=== PATIENT | female | born 1945 | race Caucasian/White ===

== ENCOUNTER 2019-11-05 22:06 | Inpatient (IN) | payer BC, MEDICARE ==
--- NOTE | 2019-11-05 22:58 | PDOC.HHP ---
Hospitalist HPI - History of Present Illness SOB History of Present Illness: 74F with no significant PMH presents for SOB for last 2 weeks which is worsening , last 5 days developed bilateral lower extremity swelling, no chest pain, went to [facility] ED and workup there revealed LBBB, CXR mild pleural effusion, TnI 0.1, repeat pending, got ASA, lasix, lovenox. EKG reviewed, 88 bpm NSR, LBBB , no old one for comparison. Sgarbossa 0, highly unlikely that LBBB represents STEMI especially with clinical picture more like CHF than STEMI. sound physicians consulted for new onset CHF w/ exacerbation. Of note had very good response to lasix so far, symptoms improved. She reports significant edema (3-4 + on exam) which is a few weeks old. ED Course: VITAL SIGNS Cynthia Nov 06, 2019 00:01 LEONARDO Hodge Julia BP: 134/68 Pulse: 80 Resp: 20 Temp: 97.9 (Oral) Pain: 0 O2 sat: 98 on (2L Oxygen) Time: 11/06/2019 00:01. Hospitalist ROS - Review of Systems Constitutional: reports: weakness. denies: fever, chills, sweats, malaise, other Eyes: denies: pain, vision change, conjunctivae inflammation, eyelid inflammation, redness, other ENT: denies: ear pain, ear discharge, nose pain, nose discharge, nose congestion , mouth pain, mouth swelling, throat pain, throat swelling, other Respiratory: reports: shortness of breath, SOB with excertion. denies: cough, dry, hemoptysis, pleuritic pain, sputum, wheezing, other Cardiovascular: reports: edema, light headedness. denies: chest pain, palpitations, orthopnea, paroxysmal noc. dyspnea, other Gastrointestinal: denies: nausea, vomiting, abdominal pain, diarrhea, constipation, melena, hematochezia, other Genitourinary: denies: dysuria, frequency, incontinence, hematuria, retention, other Musculoskeletal: denies: neck pain, shoulder pain, arm pain, back pain, hand pain, leg pain, foot pain, other Skin: denies: rash, lesions, noris, bruising, other Neurological: denies: weakness, numbness, incoordination, change in speech, confusion, seizures, other All other systems reviewed; all pertinent +/- noted in HPI/Subj Hospitalist History - Past Medical History Other Medical History: no significant PMH - Past Surgical History Other Surgical History: knee replacement - Family History Family History: reports: no pertinent history - Social History Smoking Status: Never smoker Alcohol: reports: None Drugs: reports: none - Exam General Appearance: NAD, awake alert Eye: PERRL, anicteric sclera ENT: normocephalic atraumatic, no oropharyngeal lesions, moist mucosa Neck: supple, symmetric, no JVD, no thyromegaly, no lymphadenopathy, no carotid bruit Heart: RRR, no murmur, no gallops, no rubs, normal peripheral pulses Heart - other findings: systolic ejection murmur Respiratory: CTAB, no wheezes, no rales, no ronchi, normal chest expansion, no tachypnea, normal percussion Gastrointestinal: soft, non-tender, non-distended, normal bowel sounds, no palpable masses, no hepatomegaly, no splenomegaly, no bruit Extremities - other findings: 3+ bilateral lower extremity pitting edema Skin: no lesions, no rashes Neurological: cranial nerve grossly intact, normal sensation to touch, no weakness, no focal deficits, no new deficit Musculoskeletal: normal tone, normal strength, no muscle wasting Psychiatric: normal affect, normal behavior, A&O x 3 Hospitalist Results - Labs Result Diagrams: 11/06/19 02:48 11/06/19 02:48 - EKG Interpretation EKG: reviewed see HPI LBBB with 0 of sgarbossa criteria Hospitalist H&P A/P - Plan Plan: 74F with no significant PMH presents for SOB for last 2 weeks, found to have edema, elevated troponin, murmur, given asa and lovenox, symptoms improved with lasix. # elevaed troponin # acute CHF - EF unknown # murmur - admit to telemetry - trend troponin - continue ASA, lovenox, statin - consult cardiology - echo ordered - murmur on exam - continue IV lasix - will order stress test
[2019-11-06 00:05] LABS: CKMB 2.9 ng/mL (0-6.6)
[2019-11-06] MEDS ORDERED: Ondansetron ODT 4 MG TAB SL PRN (00:58)
[2019-11-06] MEDS ORDERED: Ondansetron PF 4 MG/2 ML Vial IVP PRN ×2 (00:58→01:35)
[2019-11-06] MEDS ORDERED: cloNIDine 0.1 MG TAB PO PRN (01:35)
[2019-11-06] MEDS ORDERED: Morphine 2 MG/ML SYRINGE SLOW IVP PRN (01:35)
[2019-11-06] MEDS ORDERED: hydrALAZINE 20 MG/ML VIAL SLOW IVP PRN (01:35)
[2019-11-06] MEDS ORDERED: Promethazine HCl 12.5 MG in Sodium Chloride 0.9% 50 ML IVPB PRN (01:35)
[2019-11-06] MEDS ORDERED: Bisacodyl 10 MG SUPP PR PRN (01:36)
[2019-11-06] MEDS ORDERED: Bisacodyl 5 MG TAB PO PRN (01:36)
[2019-11-06 03:10] LABS: #Eosinphils 0.1 thou/uL (0.0-0.7); #Lymphocytes 0.7 thou/uL (1.20-3.40); #Monocytes 0.7 thou/uL (0.11-0.59); #Neutrophils 4.4 thou/uL (1.40-6.50); %Basophils 0.5 % (0.0-1.0); %Eosinophils 2.3 % (0.0-10.0); %Lymphocytes 11.5 % (21.0-51.0); %Monocytes 11.9 % (0.0-10.0); %Neutrophils 73.8 % (42.0-75.0); Hemoglobin 12.5 g/dL (12.0-16.0); Mean Corpuscular HGB CONC 31.8 g/dL (32.0-36.0); Mean Corpuscular Volume 97.5 fL (78.0-98.0); Mean Platelet Volume 8.2 fL (7.4-10.4); Platelet Count 182 thou/uL (130-400); RBC Distribution Width 13.3 % (11.5-14.5); Red Blood Cell (RBC) Count 4.05 mill/uL (4.20-5.40); White Blood Cell (WBC) Count 5.9 thou/uL (4.8-10.8)
[2019-11-06 03:22] LABS: Troponin I 0.118 ng/mL (< 0.028)
[2019-11-06 03:33] LABS: Anion Gap 10 mmol/L (10-20); BUN (Urea Nitrogen) 18 mg/dL (9.8-20.1); Calc. Creatinine Clearance 0 mL/min (70-130); Calcium 8.8 mg/dL (7.8-10.44); Carbon Dioxide 33 mmol/L (23-31); Chloride 104 mmol/L (98-107); Estimated GFR-MDRD 71; Glucose 131 mg/dL (83-110); Magnesium 1.9 mg/dL (1.6-2.6); Potassium 3.9 mmol/L (3.5-5.1); Sodium 143 mmol/L (136-145)
[2019-11-06] MEDS ORDERED: Furosemide 40 MG/4 ML VIAL ONE (06:22)
[2019-11-06] MEDS: Furosemide 40 MG/4 ML VIAL SLOW IVP SCH ×2 (06:38→16:58)
[2019-11-06] MEDS: buPROPion HCl 100 MG TAB PO SCH ×2 (08:53→20:27)
[2019-11-06] MEDS: Aspirin 81 mg Enteric Coated Tablet PO SCH (08:53)
[2019-11-06] MEDS: Polyethylene Glycol 3350 17 GM Packet PO SCH (08:54)
[2019-11-06] MEDS: Enoxaparin Sodium 120 MG/0.8 ML SYRINGE SC SCH ×2 (08:58→20:27)
[2019-11-06] MEDS ORDERED: Enoxaparin Sodium 40 MG/0.4 ML SYRINGE SC SCH (09:00)
[2019-11-06 09:52] LABS: Troponin I 0.107 ng/mL (< 0.028)
[2019-11-06] MEDS ORDERED: Regadenoson 0.4 MG/5 ML SYRINGE ONE (14:01)
--- NOTE | 2019-11-06 16:01 | NM ---
EXAM: NM Cardiac Stress W EF WF PROVIDED CLINICAL HISTORY: No onset CHF. COMPARISON: None FINDINGS: Stress only myocardial perfusion images are obtained after the administration of Lexiscan IV. Diminis hed uptake of radiotracer is seen in the distal anterolateral left ventricular wall and at the apex on the attenuation corrected images, but perfusion in the distal anterolateral wall has more normal a ppearing uptake on the nonattenuation corrected images. Resting acquisition was not performed for further evaluation. This is probably related to artifact but a small area of mild ischemia cannot be entirely excluded. There is mild left ventricular dilatation. Gated images demonstrate generalized hypokinesis. There does appear to be normal wall thickening. The calculated left ventricular ejection fraction is decreased at 33%.. IMPRESSION: 1. There is diminished uptake of radiotracer in the distal anterolateral left ventricular wall and at the apex on attenuation corrected stress images which has more normal appearing uptake on the nonattenuation corrected images. This area is probably related to artifact. Small area of mild ischem ia cannot be entirely excluded. 2. Decreased LV function with generalized hypokinesis and decreased LVEF of 33%.
--- NOTE | 2019-11-06 17:11 | CON ---
DATE OF CONSULTATION: 11/06/2019 REASON FOR CONSULTATION: Heart failure. HISTORY OF PRESENT ILLNESS: Ms. Bran is a very pleasant 74-year-old white female, who comes to the hospital for worsening shortness of breath. She, for the last 2 weeks, has developed worsening lower extremity edema and shortness of breath. She went to the ER and was found to have a new onset of left bundle-branch block, pleural effusions on chest x-ray, and was admitted for further evaluation and care. She has been diuresed. She feels a lot better, but still quite short of breath and edema has improved, but still there. Denies any chest pain, tightness, or pressure. PAST MEDICAL HISTORY: None. PAST SURGICAL HISTORY: 1. She had a heart catheterization [place] [address] Mccurdy that showed no flow-limiting disease. 2. Knee replacement. FAMILY HISTORY: Noncontributory. SOCIAL HISTORY: No alcohol, tobacco, or drugs. REVIEW OF SYSTEMS: A 12-point review of systems was done and was all negative unless stated in the history of present illness. OUTPATIENT MEDICATIONS: Multivitamin daily. ALLERGIES: NO KNOWN DRUG ALLERGIES. PHYSICAL EXAMINATION: VITAL SIGNS: Temperature 98.2, pulse 86, respiratory rate 16, saturations 95% on 3 L, blood pressure 142/67. GENERAL: Awake, alert, oriented x3, in no distress. HEENT: Normocephalic and atraumatic. NECK: Supple. LUNGS: No breath sounds at the right base. Crackles in the left base. CARDIOVASCULAR: S1 and S2. No S3 or S4. No murmurs. There is a grade 2/6 systolic murmur at the right upper sternal border. ABDOMEN: Soft. Positive bowel sounds. EXTREMITIES: 2+ edema. SKIN: Warm and dry. LABORATORY DATA: Laboratory work was reviewed. Sodium 143, potassium 3.9, normal BUN and creatinine. Troponin was 0.11, 0.11, and 0.10 with normal CK-MB. EKG was reviewed. Left bundle-branch block. Echocardiogram was reviewed, shows an EF of 20% to 25% with grade 2 diastolic dysfunction. Inferior wall is hypokinetic and inferoseptal wall is hypokinetic and anteroseptal wall is hypokinetic. ASSESSMENT: 1. New onset systolic heart failure. 2. Acute on chronic systolic heart failure. 3. New onset left bundle-branch block. PLAN: 1. Continue IV diuresis with Lasix. She is already improving significantly. 2. We will start low-dose beta-shreyas today and hopefully low-dose ALEXI inhibitor tomorrow. 3. Once she is more euvolemic and unable to lay flat, we will plan on doing a heart catheterization. We spoke at length with risks and benefits of the procedure. Risks included, but not limited to stroke, [place], , bleeding, need for blood transfusion, limb loss, organ loss. She understands and verbalized understanding of this and agrees to proceed. Thank you for letting us to participate in the care of your patient. We will continue to follow. Job ID: [id number]
--- NOTE | 2019-11-06 18:47 | PDOC.HOSPP ---
- Subjective Encounter Date: 11/06/19 Encounter Time: 08:40 Subjective: Pt seen for followup re: CHF exacerbation. Feels slightly better. - Objective Vital Signs & Weight: Vital Signs (12 hours) Temp Pulse Resp BP Pulse Ox 11/06/19 16:00 95 11/06/19 15:13 98.2 F 86 16 142/67 H 95 11/06/19 08:24 88 18 96 Weight Weight 237 lb 1 oz Result Diagrams: 11/06/19 02:48 11/06/19 02:48 Additional Labs: Labs and MARs reviewed by me EKG Reviewed by me: Yes (Tele: NSR) Hospitalist ROS - Review of Systems Constitutional: denies: fever, chills, sweats, weakness, malaise Respiratory: reports: SOB with excertion. denies: cough, shortness of breath, pleuritic pain, wheezing Cardiovascular: reports: orthopnea. denies: chest pain, palpitations, paroxysmal noc. dyspnea, edema, light headedness Gastrointestinal: denies: nausea, vomiting, abdominal pain, diarrhea, constipation, melena, hematochezia Genitourinary: denies: dysuria, frequency, incontinence, hematuria, retention - Medication Medications: Active Medications Generic Name Dose Route Start Last Admin Trade Name Freq PRN Reason Stop Dose Admin Albuterol/Ipratropium 3 ml 11/06/19 07:00 11/06/19 17:39 Duoneb NEB Not Given [id number] [facility] Aspirin 81 mg 11/06/19 09:00 11/06/19 08:53 Ecotrin PO Not Given DAILY [facility] Bupropion HCl 100 mg 11/06/19 09:00 11/06/19 08:53 Wellbutrin PO Not Given BID [facility] Enoxaparin Sodium 115 mg 11/06/19 09:00 11/06/19 08:58 Lovenox SC 115 mg 0900,2100 CH[facility]IS Administration Furosemide 40 mg 11/06/19 06:00 11/06/19 16:58 Lasix SLOW IVP 40 mg 0600,1400 CHRIS Administration Pantoprazole Sodium 40 mg 11/06/19 09:00 11/06/19 08:54 Protonix PO Not Given DAILY [facility] Polyethylene Glycol 17 gm 11/06/19 09:00 11/06/19 08:54 Miralax PO Not Given DAILY [facility]IS - Exam General - other findings: Obese Eye: anicteric sclera ENT: moist mucosa Neck: supple, symmetric, no thyromegaly, no lymphadenopathy, JVD Heart: RRR, no gallops, no rubs, normal peripheral pulses Respiratory: no wheezes, normal chest expansion, no tachypnea, rales Gastrointestinal: soft, non-tender, non-distended, normal bowel sounds Extremities: 2+ LE edema Musculoskeletal: no muscle wasting Psychiatric: normal affect, normal behavior, A&O x 3 Hosp A/P (1) Acute combined systolic and diastolic CHF, NYHA class 3 Code(s): I50.41 - ACUTE COMBINED SYSTOLIC AND DIASTOLIC (CONGESTIVE) HRT FAIL Status: Acute (2) NSTEMI (non-ST elevated myocardial infarction) Code(s): I21.4 - NON-ST ELEVATION (NSTEMI) MYOCARDIAL INFARCTION Status: Acute (3) Abnormal stress test Status: Acute (4) Alkalosis Code(s): E87.3 - ALKALOSIS Status: Acute - Plan Continue furosemide. For cath when orthopnea improves. Alkalosis mild, monitor lytes.
[2019-11-06] MEDS: Atorvastatin Calcium 40 MG TAB PO SCH (20:27)
[2019-11-07 04:53] LABS: #Eosinphils 0.2 thou/uL (0.0-0.7); #Lymphocytes 0.8 thou/uL (1.20-3.40); #Monocytes 0.6 thou/uL (0.11-0.59); #Neutrophils 3.9 thou/uL (1.40-6.50); %Basophils 0.7 % (0.0-1.0); %Eosinophils 3.2 % (0.0-10.0); %Lymphocytes 13.7 % (21.0-51.0); %Neutrophils 71.5 % (42.0-75.0); Hemoglobin 11.9 g/dL (12.0-16.0); Mean Corpuscular HGB CONC 30.3 g/dL (32.0-36.0); Mean Corpuscular Hemoglobin 29.8 pg (27.0-31.0); Mean Corpuscular Volume 98.2 fL (78.0-98.0); Mean Platelet Volume 7.9 fL (7.4-10.4); Platelet Count 182 thou/uL (130-400); RBC Distribution Width 13.2 % (11.5-14.5); Red Blood Cell (RBC) Count 3.99 mill/uL (4.20-5.40); White Blood Cell (WBC) Count 5.5 thou/uL (4.8-10.8)
[2019-11-07 05:07] LABS: Anion Gap 11 mmol/L (10-20); BUN (Urea Nitrogen) 16 mg/dL (9.8-20.1); Calc. Creatinine Clearance 87 mL/min (70-130); Calcium 8.7 mg/dL (7.8-10.44); Carbon Dioxide 37 mmol/L (23-31); Chloride 100 mmol/L (98-107); Estimated GFR-MDRD 59; Glucose 99 mg/dL (83-110); Potassium 3.8 mmol/L (3.5-5.1); Sodium 144 mmol/L (136-145)
[2019-11-07] MEDS: Furosemide 40 MG/4 ML VIAL SLOW IVP SCH ×2 (05:29→14:25)
[2019-11-07] MEDS: Aspirin 81 mg Enteric Coated Tablet PO SCH (08:30)
[2019-11-07] MEDS: buPROPion HCl 100 MG TAB PO SCH ×2 (08:30→20:20)
[2019-11-07] MEDS: Polyethylene Glycol 3350 17 GM Packet PO SCH (08:30)
[2019-11-07] MEDS: Enoxaparin Sodium 120 MG/0.8 ML SYRINGE SC SCH ×2 (08:30→20:21)
--- NOTE | 2019-11-07 14:21 | PDOC.HOSPP ---
- Subjective Encounter Date: 11/07/19 Encounter Time: 08:20 Subjective: Pt seen for followup re: CHF exacerbation. Feels better. No chest pain. - Objective Vital Signs & Weight: Vital Signs (12 hours) Temp Pulse Resp BP Pulse Ox 11/07/19 11:39 83 115/65 11/07/19 10:14 82 19 11/07/19 07:59 97 11/07/19 07:42 97.9 F 78 20 129/71 97 11/07/19 04:35 96.9 F L 85 20 134/80 93 L Weight Weight 235 lb I&O: 11/06/19 11/07/19 11/08/19 06:59 06:59 06:59 Intake Total 484 Output Total 1225 600 Balance -1225 -116 Result Diagrams: 11/07/19 04:29 11/07/19 04:29 Additional Labs: Labs and MARs reviewed by me EKG Reviewed by me: Yes (Tele; NSR) Hospitalist ROS - Review of Systems Constitutional: denies: fever, chills, sweats, weakness, malaise Respiratory: reports: cough, dry, SOB with excertion. denies: shortness of breath, pleuritic pain, wheezing Cardiovascular: reports: orthopnea, edema. denies: chest pain, palpitations, paroxysmal noc. dyspnea, light headedness Gastrointestinal: denies: nausea, vomiting, abdominal pain, diarrhea, constipation, melena, hematochezia Genitourinary: denies: dysuria, frequency, incontinence, hematuria, retention Skin: denies: rash, lesions, noris, bruising - Medication Medications: Active Medications Generic Name Dose Route Start Last Admin Trade Name Freq PRN Reason Stop Dose Admin Albuterol/Ipratropium 3 ml 11/06/19 07:00 11/07/19 10:14 Duoneb NEB 3 ml [id number] CHRIS Administration Aspirin 81 mg 11/06/19 09:00 11/07/19 08:30 Ecotrin PO 81 mg DAILY [facility]IS Administration Atorvastatin Calcium 40 mg 11/06/19 21:00 11/06/19 20:27 Lipitor PO 40 mg HS CHRIS Administration Bupropion HCl 100 mg 11/06/19 09:00 11/07/19 08:30 Wellbutrin PO 100 mg BID CHRIS Administration Enoxaparin Sodium 115 mg 11/06/19 09:00 11/07/19 08:30 Lovenox SC 115 mg 0900,2100 CHRIS Administration Furosemide 40 mg 11/06/19 06:00 11/07/19 05:29 Lasix SLOW IVP 40 mg 0600,1400 CHRIS Administration Pantoprazole Sodium 40 mg 11/06/19 09:00 11/07/19 08:30 Protonix PO 40 mg DAILY [facility]IS Administration Polyethylene Glycol 17 gm 11/06/19 09:00 11/07/19 08:30 Miralax PO Not Given DAILY [facility] - Exam General - other findings: Obesity Eye: anicteric sclera ENT: moist mucosa Neck: supple, symmetric, no thyromegaly, JVD Heart: RRR, no gallops, no rubs, normal peripheral pulses Respiratory: rales Gastrointestinal: soft, non-tender, non-distended, normal bowel sounds Extremities: 2+ LE edema Psychiatric: normal affect, normal behavior, A&O x 3 Hosp A/P (1) Acute combined systolic and diastolic CHF, NYHA class 3 Code(s): I50.41 - ACUTE COMBINED SYSTOLIC AND DIASTOLIC (CONGESTIVE) HRT FAIL Status: Acute (2) NSTEMI (non-ST elevated myocardial infarction) Code(s): I21.4 - NON-ST ELEVATION (NSTEMI) MYOCARDIAL INFARCTION Status: Acute (3) Abnormal stress test Status: Acute (4) Alkalosis Code(s): E87.3 - ALKALOSIS Status: Acute - Plan plan discussed w/ family Pt clinically improving. Continue furosemide. One time dose of Diamox for alkalosis. For cath on Sunday.
[2019-11-07] MEDS ORDERED: AcetaZOLAMIDE 250 MG TAB PO SCH (14:30)
--- NOTE | 2019-11-07 18:54 | PDOC.CPN ---
- Subjective Date: 11/07/19 Time: 18:52 Interval history: She is doing better. No chest pain. SOB is improving. Edema improving. - Review of Systems General: denies: fever/chills, weight/appetite/sleep changes, night sweats, fatigue Respiratory: denies: cough, congestion, shortness of breath, exercise intolerance Cardiovascular: reports: edema. denies: chest pain, palpitation, paroxysmal nocturnal dyspnea, orthopnea Gastrointestinal: denies: nausea, vomiting, diarrhea, constipation, abd pain, GI bleeding Musculoskeletal: denies: pain, tenderness, stiffness, swelling, arthritis/ arthralgias Neurological: denies: numbness, syncope, seizure, weakness - Objective Allergies/Adverse Reactions: Allergies Allergy/AdvReac Type Severity Reaction Status Date / Time No Known Allergies Allergy Verified 11/06/19 16:47 Visit Medications: Current Medications Acetaminophen (Tylenol) 650 mg PO Q4H PRN PRN Reason: Headache/Fever/Mild Pain (1-3) Hydrocodone Bitart/Acetaminophen ([place] 5/325) 1 tab PO Q4H PRN PRN Reason: Moderate Pain (4-6) Albuterol/Ipratropium (Duoneb) 3 ml NEB [id number] [facility] Last Admin: 11/07/19 15:31 Dose: 3 ml Albuterol/Ipratropium (Duoneb) 3 ml NEB [id number] PRN PRN Reason: SOB &/or Wheezing Aspirin (Ecotrin) 81 mg PO DAILY [facility] Last Admin: 11/07/19 08:30 Dose: 81 mg Atorvastatin Calcium (Lipitor) 40 mg PO HS [facility] Last Admin: 11/06/19 20:27 Dose: 40 mg Bisacodyl (Dulcolax) 10 mg PO DAILYPRN PRN PRN Reason: Constipation Bisacodyl (Dulcolax) 10 mg [place] DAILYPRN PRN PRN Reason: Constipation Bupropion HCl (Wellbutrin) 100 mg PO BID [facility] Last Admin: 11/07/19 08:30 Dose: 100 mg Clonidine (Catapres) 0.1 mg PO BID PRN PRN Reason: SBP > 160 use second Enoxaparin Sodium (Lovenox) 115 mg SC 0900,2100 [facility] Last Admin: 11/07/19 08:30 Dose: 115 mg Furosemide (Lasix) 40 mg SLOW IVP 0600,1400 [facility] Last Admin: 11/07/19 14:25 Dose: 40 mg Hydralazine HCl (Apresoline) 10 mg SLOW IVP Q6H PRN PRN Reason: SBP GREATER THAN 160 Promethazine HCl 12.5 mg/ (Sodium Chloride) 50.5 mls @ 202 mls/hr IVPB Q6H PRN PRN Reason: Nausea/vomiting use second Morphine Sulfate (Morphine) 2 mg SLOW IVP Q4H PRN PRN Reason: Breakthrough Pain Ondansetron HCl (Zofran) 4 mg IVP Q6H PRN PRN Reason: Nausea/Vomiting use 1st Pantoprazole Sodium (Protonix) 40 mg PO DAILY [facility] Last Admin: 11/07/19 08:30 Dose: 40 mg Polyethylene Glycol (Miralax) 17 gm PO DAILY [facility] Last Admin: 11/07/19 08:30 Dose: Not Given Vital Signs & Weight: Vital Signs Temp Pulse Resp BP Pulse Ox 11/07/19 15:40 97.9 F 71 16 115/65 99 11/07/19 15:31 83 16 11/07/19 10:14 82 19 11/07/19 07:59 97 11/07/19 07:42 97.9 F 78 20 129/71 97 Weight 235 lb - Physical Exam General: alert & oriented x3 HEENT: mucus membranes moist Neck: supple neck Cardiac: regular rate and rhythm Lungs: clear to auscultation Neuro: grossly intact Abdomen: active bowel sounds Extremities: 2+ LE edema Skin: clear Musculoskeletal: no pain - Labs Result Diagrams: 11/07/19 04:29 11/07/19 04:29 Troponin/CKMB CK-MB (CK-2) 2.9 ng/mL (0-6.6) 11/05/19 23:00 Troponin I 0.107 ng/mL (< 0.028) H 11/06/19 09:23 - Telemetry Sinus rhythms and dysrhythmias: sinus rhythm - Assessment/Plan Assessment/Plan: 1. New onset CM EF at 20-25% 2. Acute on chronic systolic heart failure. 3. New onset LBBB. PLAN: - Continue to diurese over the weekend. - Plan to risk stratify on Sunday with [facility].
[2019-11-07] MEDS ORDERED: Communication Order-Pharmacy FS SCH (19:00)
[2019-11-07] MEDS: Atorvastatin Calcium 40 MG TAB PO SCH (20:20)
[2019-11-08 04:26] LABS: #Lymphocytes 0.5 thou/uL (1.20-3.40); #Monocytes 0.9 thou/uL (0.11-0.59); #Neutrophils 6.9 thou/uL (1.40-6.50); %Eosinophils 0.6 % (0.0-10.0); %Lymphocytes 5.6 % (21.0-51.0); %Monocytes 11.2 % (0.0-10.0); %Neutrophils 82.7 % (42.0-75.0); Hemoglobin 12.6 g/dL (12.0-16.0); Mean Corpuscular HGB CONC 31.6 g/dL (32.0-36.0); Mean Corpuscular Hemoglobin 30.5 pg (27.0-31.0); Mean Corpuscular Volume 96.5 fL (78.0-98.0); Mean Platelet Volume 8.4 fL (7.4-10.4); Platelet Count 157 thou/uL (130-400); RBC Distribution Width 13.2 % (11.5-14.5); Red Blood Cell (RBC) Count 4.13 mill/uL (4.20-5.40); White Blood Cell (WBC) Count 8.4 thou/uL (4.8-10.8)
[2019-11-08 04:38] LABS: Anion Gap 11 mmol/L (10-20); BUN (Urea Nitrogen) 17 mg/dL (9.8-20.1); Calc. Creatinine Clearance 69 mL/min (70-130); Calcium 8.4 mg/dL (7.8-10.44); Carbon Dioxide 31 mmol/L (23-31); Chloride 97 mmol/L (98-107); Estimated GFR-MDRD 45; Glucose 132 mg/dL (83-110); Potassium 3.4 mmol/L (3.5-5.1); Sodium 136 mmol/L (136-145)
[2019-11-08] MEDS: Furosemide 40 MG/4 ML VIAL SLOW IVP SCH ×2 (05:35→15:16)
[2019-11-08] MEDS: Sodium Chloride 0.9% 10 ML ONE (05:35)
[2019-11-08] MEDS ORDERED: Sodium Chloride 0.9% 10 ML ONE ×2 (08:26→13:39)
[2019-11-08] MEDS: Aspirin 81 mg Enteric Coated Tablet PO SCH (09:00)
[2019-11-08] MEDS: Enoxaparin Sodium 120 MG/0.8 ML SYRINGE SC SCH ×2 (09:00→20:23)
[2019-11-08] MEDS: buPROPion HCl 100 MG TAB PO SCH ×2 (09:00→20:23)
[2019-11-08] MEDS ORDERED: Potassium Chloride 20 MEQ TAB PO SCH (09:00)
[2019-11-08] MEDS: Polyethylene Glycol 3350 17 GM Packet PO SCH (09:05)
--- NOTE | 2019-11-08 16:35 | PDOC.HOSPP ---
- Subjective Encounter Date: 11/08/19 Encounter Time: 07:40 Subjective: Pt seen for followup re: CHF exacerbation. c/o SOBOE and orthopnea. - Objective Vital Signs & Weight: Vital Signs (12 hours) Temp Pulse Resp BP Pulse Ox 11/08/19 15:24 98.0 F 98 16 127/63 94 L 11/08/19 14:41 90 14 11/08/19 12:00 98.4 F 93 18 134/60 94 L 11/08/19 10:37 14 11/08/19 08:00 96.7 F L 83 18 114/69 93 L 11/08/19 07:26 90 14 Weight Weight 231 lb 8 oz I&O: 11/07/19 11/08/19 11/09/19 06:59 06:59 06:59 Intake Total 1618 Output Total 3726 7790 Balance -3340 -0495 Result Diagrams: 11/08/19 04:08 11/08/19 04:08 Additional Labs: Labs and MARs reviewed by me EKG Reviewed by me: Yes (Tele; NSR) Hospitalist ROS - Review of Systems Respiratory: reports: SOB with excertion Cardiovascular: reports: orthopnea. denies: chest pain, palpitations, paroxysmal noc. dyspnea, edema, light headedness Gastrointestinal: denies: nausea, vomiting, abdominal pain, diarrhea, constipation, melena, hematochezia - Medication Medications: Active Medications Generic Name Dose Route Start Last Admin Trade Name Freq PRN Reason Stop Dose Admin Albuterol/Ipratropium 3 ml 11/06/19 07:00 11/08/19 14:41 Duoneb NEB 3 ml [id number] [facility]IS Administration Aspirin 81 mg 11/06/19 09:00 11/08/19 09:00 Ecotrin PO 81 mg DAILY [facility]IS Administration Atorvastatin Calcium 40 mg 11/06/19 21:00 11/07/19 20:20 Lipitor PO 40 mg HS [facility]RIS Administration Bupropion HCl 100 mg 11/06/19 09:00 11/08/19 09:00 Wellbutrin PO 100 mg BID [facility]RIS Administration Enoxaparin Sodium 115 mg 11/06/19 09:00 11/08/19 09:00 Lovenox SC 11/09/19 23:59 115 mg 0900,2100 CHRIS Administration Furosemide 40 mg 11/06/19 06:00 11/08/19 15:16 Lasix SLOW IVP 40 mg 0600,1400 CHRIS Administration Pantoprazole Sodium 40 mg 11/06/19 09:00 11/08/19 09:00 Protonix PO 40 mg DAILY [facility]IS Administration Polyethylene Glycol 17 gm 11/06/19 09:00 11/08/19 09:05 Miralax PO Not Given DAILY [facility]IS - Exam General - other findings: Obese Eye: anicteric sclera ENT: moist mucosa Neck: supple, no JVD Heart: RRR Respiratory - other findings: Garrett crackles Gastrointestinal: soft, non-tender Extremities: 2+ LE edema Psychiatric: normal affect, normal behavior Hosp A/P (1) Acute combined systolic and diastolic CHF, NYHA class 3 Code(s): I50.41 - ACUTE COMBINED SYSTOLIC AND DIASTOLIC (CONGESTIVE) HRT FAIL Status: Acute (2) NSTEMI (non-ST elevated myocardial infarction) Code(s): I21.4 - NON-ST ELEVATION (NSTEMI) MYOCARDIAL INFARCTION Status: Acute (3) Abnormal stress test Status: Acute (4) Alkalosis Code(s): E87.3 - ALKALOSIS Status: Resolved - Plan out of bed/ambulate Pt clinically improving, in negative fluid balance. Continue furosemide. Metabolic alkalosis resolved. For cath on Sunday.
[2019-11-08] MEDS: Atorvastatin Calcium 40 MG TAB PO SCH (20:23)
[2019-11-09] MEDS: HYDROcodone/Acetaminophen 5/325 mg Tablet PO PRN ×2 (01:58→16:09)
[2019-11-09 04:42] LABS: #Lymphocytes 0.6 thou/uL (1.20-3.40); #Neutrophils 5.8 thou/uL (1.40-6.50); %Eosinophils 0.3 % (0.0-10.0); %Lymphocytes 7.7 % (21.0-51.0); %Monocytes 13.8 % (0.0-10.0); %Neutrophils 78.3 % (42.0-75.0); Hemoglobin 11.5 g/dL (12.0-16.0); Mean Corpuscular HGB CONC 31.9 g/dL (32.0-36.0); Mean Corpuscular Hemoglobin 30.7 pg (27.0-31.0); Mean Corpuscular Volume 96.3 fL (78.0-98.0); Mean Platelet Volume 8.1 fL (7.4-10.4); Platelet Count 152 thou/uL (130-400); RBC Distribution Width 13.1 % (11.5-14.5); Red Blood Cell (RBC) Count 3.74 mill/uL (4.20-5.40); White Blood Cell (WBC) Count 7.4 thou/uL (4.8-10.8)
[2019-11-09 05:03] LABS: Anion Gap 10 mmol/L (10-20); BUN (Urea Nitrogen) 16 mg/dL (9.8-20.1); Calc. Creatinine Clearance 89 mL/min (70-130); Calcium 8.4 mg/dL (7.8-10.44); Carbon Dioxide 31 mmol/L (23-31); Chloride 97 mmol/L (98-107); Estimated GFR-MDRD 62; Glucose 112 mg/dL (83-110); Potassium 3.3 mmol/L (3.5-5.1); Sodium 135 mmol/L (136-145)
[2019-11-09] MEDS: Furosemide 40 MG/4 ML VIAL SLOW IVP SCH ×2 (05:40→14:01)
[2019-11-09] MEDS ORDERED: Potassium Chloride 20 MEQ TAB PO SCH (08:30)
[2019-11-09] MEDS: buPROPion HCl 100 MG TAB PO SCH ×2 (09:18→21:10)
[2019-11-09] MEDS: Enoxaparin Sodium 120 MG/0.8 ML SYRINGE SC SCH ×2 (09:18→21:10)
[2019-11-09] MEDS: Aspirin 81 mg Enteric Coated Tablet PO SCH (09:18)
[2019-11-09] MEDS: Polyethylene Glycol 3350 17 GM Packet PO SCH (09:20)
--- NOTE | 2019-11-09 13:54 | PDOC.HOSPP ---
- Subjective Encounter Date: 11/09/19 Encounter Time: 09:00 Subjective: Pt seen for followup re: acute combined CHF exacerbation. Feels slightly better today. - Objective Vital Signs & Weight: Vital Signs (12 hours) Temp Pulse Resp BP Pulse Ox 11/09/19 11:28 97.3 F L 83 18 122/64 99 11/09/19 11:06 94 16 11/09/19 09:16 97.8 F 81 20 128/57 L 93 L 11/09/19 08:25 85 16 11/09/19 08:00 95 11/09/19 03:30 151/76 H 11/09/19 03:25 98.1 F 85 18 161/112 H 97 Weight Weight 233 lb 9.6 oz I&O: 11/08/19 11/09/19 11/10/19 06:59 06:59 06:59 Intake Total 1618 1090 Output Total 4642 8280 Balance -3053 -2074 Result Diagrams: 11/09/19 04:32 11/09/19 04:32 Additional Labs: Labs and MARs reviewed by me EKG Reviewed by me: Yes (Tele: NSR) Hospitalist ROS - Review of Systems Respiratory: reports: SOB with excertion Cardiovascular: reports: orthopnea, edema. denies: chest pain, palpitations, paroxysmal noc. dyspnea, light headedness Gastrointestinal: denies: nausea, vomiting, abdominal pain, diarrhea, constipation, melena, hematochezia - Medication Medications: Active Medications Generic Name Dose Route Start Last Admin Trade Name Freq PRN Reason Stop Dose Admin Hydrocodone Bitart/Acetaminophen 1 tab 11/06/19 01:36 11/09/19 01:58 [place] 5/325 PO 1 tab Q4H PRN Administration Moderate Pain (4-6) Albuterol/Ipratropium 3 ml 11/06/19 07:00 11/09/19 11:06 Duoneb NEB 3 ml [id number] CHRIS Administration Aspirin 81 mg 11/06/19 09:00 11/09/19 09:18 Ecotrin PO 81 mg DAILY [facility]IS Administration Atorvastatin Calcium 40 mg 11/06/19 21:00 11/08/19 20:23 Lipitor PO 40 mg HS [facility]IS Administration Bupropion HCl 100 mg 11/06/19 09:00 11/09/19 09:18 Wellbutrin PO 100 mg BID [facility]RIS Administration Enoxaparin Sodium 115 mg 11/06/19 09:00 11/09/19 09:18 Lovenox SC 11/09/19 23:59 115 mg 0900,2100 [facility]IS Administration Furosemide 40 mg 11/06/19 06:00 11/09/19 05:40 Lasix SLOW IVP 40 mg 0600,1400 [facility]IS Administration Pantoprazole Sodium 40 mg 11/06/19 09:00 11/09/19 09:19 Protonix PO 40 mg DAILY [facility]IS Administration Polyethylene Glycol 17 gm 11/06/19 09:00 11/09/19 09:20 Miralax PO Not Given DAILY [facility] - Exam General - other findings: Obese Eye: anicteric sclera ENT: moist mucosa Neck: JVD Heart: RRR Respiratory - other findings: Garrett crackles Gastrointestinal: soft, non-tender Musculoskeletal: no muscle wasting Psychiatric: normal affect, normal behavior Hosp A/P (1) Acute combined systolic and diastolic CHF, NYHA class 3 Code(s): I50.41 - ACUTE COMBINED SYSTOLIC AND DIASTOLIC (CONGESTIVE) HRT FAIL Status: Acute (2) NSTEMI (non-ST elevated myocardial infarction) Code(s): I21.4 - NON-ST ELEVATION (NSTEMI) MYOCARDIAL INFARCTION Status: Acute (3) Abnormal stress test Status: Acute (4) Alkalosis Code(s): E87.3 - ALKALOSIS Status: Resolved - Plan Pt clinically improving. Continue furosemide. For cath tomorrow. replace potassium.
[2019-11-09] MEDS: Sodium Chloride 0.9% 10 ML ONE (14:06)
[2019-11-09] MEDS: Atorvastatin Calcium 40 MG TAB PO SCH (21:10)
[2019-11-10] MEDS ORDERED: Sodium Chloride 0.9% 250 ML IV SCH ×2 (00:01→13:00)
[2019-11-10] MEDS: buPROPion HCl 100 MG TAB PO SCH ×2 (05:30→22:49)
[2019-11-10] MEDS: Aspirin 81 mg Enteric Coated Tablet PO SCH (05:30)
[2019-11-10] MEDS: Furosemide 40 MG/4 ML VIAL SLOW IVP SCH (05:30)
[2019-11-10] MEDS: Polyethylene Glycol 3350 17 GM Packet PO SCH (10:19)
[2019-11-10] MEDS ORDERED: Lidocaine 1% (PF) 30 ML VIAL ONE (11:15)
[2019-11-10] MEDS ORDERED: Heparin (Artline) 1,000 ML ONE (11:15)
[2019-11-10] MEDS ORDERED: Heparin 10,000 UNITS/1 ML VIAL ONE (11:41)
[2019-11-10] MEDS ORDERED: Verapamil 5 MG/2 ML VIAL ONE (11:41)
[2019-11-10] MEDS ORDERED: Nitroglycerin 100MG/250ML BOT 250 ML ONE (11:41)
[2019-11-10] MEDS ORDERED: Fentanyl 100 MCG/2 ML VIAL ONE (11:45)
[2019-11-10] MEDS ORDERED: Midazolam HCl 2 mg/2 ml Vial ONE (11:45)
[2019-11-10] MEDS ORDERED: Iopamidol 370 76% 50 ML VIAL FS ONE (12:01)
[2019-11-10] MEDS ORDERED: Iopamidol 370 76% 100 ML VIAL ONE (12:01)
[2019-11-10] MEDS ORDERED: Nitroglycerin 0.4 MG TAB (25 Tab Bottle) SL PRN (12:49)
[2019-11-10] MEDS ORDERED: TICAGRELOR 90 MG TABLET ONE (12:49)
[2019-11-10] MEDS ORDERED: Potassium Chloride 20 MEQ TAB PO SCH (13:00)
--- NOTE | 2019-11-10 14:20 | PDOC.HOSPP ---
- Subjective Encounter Date: 11/10/19 Encounter Time: 07:40 Subjective: Pt seen for followup re:CHF exacerbation. Feels better. - Objective Vital Signs & Weight: Vital Signs (12 hours) Temp Pulse Resp BP Pulse Ox 11/10/19 08:17 81 16 11/10/19 07:58 97.9 F 81 16 122/66 97 11/10/19 03:27 98.1 F 68 17 132/74 98 Weight Weight 232 lb 8 oz I&O: 11/09/19 11/10/19 11/11/19 06:59 06:59 06:59 Intake Total 1090 Output Total 2950 500 Balance -1860 -500 Result Diagrams: 11/09/19 04:32 11/09/19 04:32 Additional Labs: Labs and MARs reviewed by me EKG Reviewed by me: Yes (Tele; NSR) Hospitalist ROS - Review of Systems Cardiovascular: denies: chest pain, palpitations, orthopnea, paroxysmal noc. dyspnea, edema, light headedness Gastrointestinal: denies: nausea, vomiting, abdominal pain, diarrhea, constipation, melena, hematochezia - Medication Medications: Active Medications Generic Name Dose Route Start Last Admin Trade Name Freq PRN Reason Stop Dose Admin Hydrocodone Bitart/Acetaminophen 1 tab 11/06/19 01:36 11/09/19 16:09 [place] 5/325 PO 1 tab Q4H PRN Administration Moderate Pain (4-6) Albuterol/Ipratropium 3 ml 11/06/19 07:00 11/10/19 10:55 Duoneb NEB Not Given [id number] CHRIS Atorvastatin Calcium 40 mg 11/06/19 21:00 11/09/19 21:10 Lipitor PO 40 mg HS CHRIS Administration Bupropion HCl 100 mg 11/06/19 09:00 11/10/19 05:30 Wellbutrin PO 100 mg BID CHRIS Administration Pantoprazole Sodium 40 mg 11/06/19 09:00 11/10/19 05:30 Protonix PO 40 mg DAILY CHRIS Administration Polyethylene Glycol 17 gm 11/06/19 09:00 11/10/19 10:19 Miralax PO Not Given DAILY CHRIS - Exam General - other findings: Obesity Eye: anicteric sclera ENT: moist mucosa Neck: supple, symmetric Heart: RRR Respiratory: CTAB Gastrointestinal: soft, non-tender Extremities: 2+ LE edema Psychiatric: normal affect, normal behavior Hosp A/P (1) Acute combined systolic and diastolic CHF, NYHA class 3 Code(s): I50.41 - ACUTE COMBINED SYSTOLIC AND DIASTOLIC (CONGESTIVE) HRT FAIL Status: Acute (2) NSTEMI (non-ST elevated myocardial infarction) Code(s): I21.4 - NON-ST ELEVATION (NSTEMI) MYOCARDIAL INFARCTION Status: Acute (3) Abnormal stress test Status: Acute (4) Alkalosis Code(s): E87.3 - ALKALOSIS Status: Resolved - Plan plan discussed w/ family, out of bed/ambulate Pt clinically improving. Continue furosemide. For cath today.
[2019-11-10] MEDS: Furosemide 40 MG TAB PO SCH (15:18)
[2019-11-10] MEDS: TICAGRELOR 90 MG TABLET PO SCH (22:48)
[2019-11-10] MEDS: Atorvastatin Calcium 40 MG TAB PO SCH (22:48)
[2019-11-10] MEDS: HYDROcodone/Acetaminophen 5/325 mg Tablet PO PRN (22:48)
[2019-11-11 04:24] LABS: #Eosinphils 0.2 thou/uL (0.0-0.7); #Lymphocytes 0.6 thou/uL (1.20-3.40); #Monocytes 0.6 thou/uL (0.11-0.59); %Eosinophils 2.8 % (0.0-10.0); %Lymphocytes 9.2 % (21.0-51.0); %Monocytes 8.9 % (0.0-10.0); %Neutrophils 79.1 % (42.0-75.0); Hemoglobin 10.9 g/dL (12.0-16.0); Mean Corpuscular HGB CONC 31.5 g/dL (32.0-36.0); Mean Corpuscular Hemoglobin 30.2 pg (27.0-31.0); Mean Corpuscular Volume 95.9 fL (78.0-98.0); Platelet Count 185 thou/uL (130-400); RBC Distribution Width 12.7 % (11.5-14.5); Red Blood Cell (RBC) Count 3.61 mill/uL (4.20-5.40); White Blood Cell (WBC) Count 6.3 thou/uL (4.8-10.8)
[2019-11-11 04:47] LABS: ALT (SGPT) 20 U/L (8-55); AST (SGOT) 24 U/L (5-34); Albumin 2.8 g/dL (3.4-4.8); Alkaline Phosphatase 66 U/L (40-110); Anion Gap 10 mmol/L (10-20); BUN (Urea Nitrogen) 17 mg/dL (9.8-20.1); Bilirubin, Total 0.5 mg/dL (0.2-1.2); Calc. Creatinine Clearance 85 mL/min (70-130); Calcium 8.5 mg/dL (7.8-10.44); Carbon Dioxide 35 mmol/L (23-31); Chloride 96 mmol/L (98-107); Estimated GFR-MDRD 58; Globulin 2.9 g/dL (2.4-3.5); Glucose 107 mg/dL (83-110); Potassium 3.8 mmol/L (3.5-5.1); Protein, Total 5.7 g/dL (6.0-8.3); Sodium 137 mmol/L (136-145)
[2019-11-11] MEDS ORDERED: Lisinopril 2.5 MG TAB PO SCH (09:00)
[2019-11-11] MEDS: buPROPion HCl 100 MG TAB PO SCH ×2 (09:42→20:38)
[2019-11-11] MEDS: Aspirin Chewable 81 MG TAB PO SCH (09:42)
[2019-11-11] MEDS: TICAGRELOR 90 MG TABLET PO SCH ×2 (09:45→20:38)
[2019-11-11] MEDS: Furosemide 40 MG TAB PO SCH ×2 (09:49→14:57)
[2019-11-11] MEDS: Polyethylene Glycol 3350 17 GM Packet PO SCH (10:10)
--- NOTE | 2019-11-11 17:46 | PDOC.HOSPP ---
- Subjective Encounter Date: 11/11/19 Encounter Time: 08:20 Subjective: Pt seen for followup re: CHF exacerbation. Feels better. - Objective Vital Signs & Weight: Vital Signs (12 hours) Temp Pulse Pulse Pulse Resp BP BP 11/11/19 15:50 98.6 F 90 18 11/11/19 14:45 84 16 11/11/19 12:03 98.1 F 79 18 11/11/19 10:49 85 16 11/11/19 09:54 84 93 124/71 11/11/19 09:42 81 126/68 11/11/19 08:17 98.3 F 89 18 11/11/19 06:51 82 16 BP BP Pulse Ox 11/11/19 15:50 126/60 97 11/11/19 14:45 94 L 11/11/19 12:03 133/67 96 11/11/19 10:49 95 11/11/19 09:54 158/70 H 11/11/19 09:42 11/11/19 08:17 132/69 95 11/11/19 06:51 94 L Weight Weight 237 lb I&O: 11/10/19 11/11/19 11/12/19 06:59 06:59 06:59 Intake Total 840 Output Total 500 2250 Balance -500 -1410 Result Diagrams: 11/11/19 04:11 11/11/19 04:11 Additional Labs: Labs and MARs reviewed by me EKG Reviewed by me: Yes (Tele: NSR) Hospitalist ROS - Review of Systems Respiratory: denies: cough, shortness of breath, hemoptysis, SOB with excertion , pleuritic pain, sputum, wheezing Cardiovascular: denies: chest pain, palpitations, orthopnea, paroxysmal noc. dyspnea, edema, light headedness Musculoskeletal: reports: other (R arm swelling) - Medication Medications: Active Medications Generic Name Dose Route Start Last Admin Trade Name Freq PRN Reason Stop Dose Admin Hydrocodone Bitart/Acetaminophen 1 tab 11/06/19 01:36 11/10/19 22:48 [place] 5/325 PO 1 tab Q4H PRN Administration Moderate Pain (4-6) Albuterol/Ipratropium 3 ml 11/06/19 07:00 11/11/19 14:45 Duoneb NEB 3 ml [id number] CHRIS Administration Aspirin 81 mg 11/11/19 09:00 11/11/19 09:42 Aspirin Chewable PO 81 mg DAILY CHRIS Administration Atorvastatin Calcium 40 mg 11/06/19 21:00 11/10/19 22:48 Lipitor PO 40 mg HS CHRIS Administration Bupropion HCl 100 mg 11/06/19 09:00 11/11/19 09:42 Wellbutrin PO 100 mg BID CHRIS Administration Furosemide 40 mg 11/10/19 14:00 11/11/19 14:57 Lasix PO 40 mg 0900,1400 CHRIS Administration Lisinopril 1.25 mg 11/11/19 09:00 11/11/19 09:42 Zestril PO 1.25 mg DAILY CHRIS Administration Metoprolol Succinate 12.5 mg 11/11/19 09:00 11/11/19 09:44 Toprol Xl PO 12.5 mg DAILY CHRIS Administration Morphine Sulfate 2 mg 11/06/19 01:35 11/10/19 23:36 Morphine SLOW IVP 2 mg Q4H PRN Administration Breakthrough Pain Pantoprazole Sodium 40 mg 11/06/19 09:00 11/11/19 09:44 Protonix PO 40 mg DAILY CHRIS Administration Polyethylene Glycol 17 gm 11/06/19 09:00 11/11/19 10:10 Miralax PO Not Given DAILY [facility] Ticagrelor 90 mg 11/10/19 21:00 11/11/19 09:45 Brilinta PO 90 mg BID CHRIS Administration - Exam General - other findings: Obese Eye: anicteric sclera ENT: no oropharyngeal lesions Neck: supple Heart: RRR Respiratory: CTAB Gastrointestinal: soft, non-tender Extremities: 2+ LE edema Extremities - other findings: R arm hematoma Psychiatric: normal affect, normal behavior Hosp A/P (1) Acute combined systolic and diastolic CHF, NYHA class 3 Code(s): I50.41 - ACUTE COMBINED SYSTOLIC AND DIASTOLIC (CONGESTIVE) HRT FAIL Status: Acute (2) NSTEMI (non-ST elevated myocardial infarction) Code(s): I21.4 - NON-ST ELEVATION (NSTEMI) MYOCARDIAL INFARCTION Status: Acute (3) Alkalosis Code(s): E87.3 - ALKALOSIS Status: Resolved - Plan Compression dressing for hematoma. Continue furosemide. s/p PCI with MARK.
[2019-11-11] MEDS: Acetaminophen 325 MG TAB PO PRN ×2 (18:21→20:39)
--- NOTE | 2019-11-11 19:38 | PDOC.CPN ---
- Subjective Date: 11/11/19 Time: 19:37 Interval history: Doing better, she developed a hematoma on her ri\ght forearm. Pressure dressing applied and better now. No chest pain, tightness, pressure. SOB improving. - Review of Systems General: denies: fever/chills, weight/appetite/sleep changes, night sweats, fatigue Respiratory: denies: cough, congestion, shortness of breath, exercise intolerance Cardiovascular: denies: chest pain, palpitation, edema, paroxysmal nocturnal dyspnea, orthopnea Gastrointestinal: denies: nausea, vomiting, diarrhea, constipation, abd pain, GI bleeding Musculoskeletal: denies: pain, tenderness, stiffness, swelling, arthritis/ arthralgias Neurological: denies: numbness, syncope, seizure, weakness - Objective Allergies/Adverse Reactions: Allergies Allergy/AdvReac Type Severity Reaction Status Date / Time No Known Allergies Allergy Verified 11/06/19 16:47 Visit Medications: Current Medications Acetaminophen (Tylenol) 650 mg PO Q4H PRN PRN Reason: Headache/Fever/Mild Pain (1-3) Last Admin: 11/11/19 18:21 Dose: 650 mg Hydrocodone Bitart/Acetaminophen ([place] 5/325) 1 tab PO Q4H PRN PRN Reason: Moderate Pain (4-6) Last Admin: 11/10/19 22:48 Dose: 1 tab Albuterol/Ipratropium (Duoneb) 3 ml NEB [id number] SCH Last Admin: 11/11/19 14:45 Dose: 3 ml Albuterol/Ipratropium (Duoneb) 3 ml NEB [id number] PRN PRN Reason: SOB &/or Wheezing Aspirin (Aspirin Chewable) 81 mg PO DAILY [facility] Last Admin: 11/11/19 09:42 Dose: 81 mg Atorvastatin Calcium (Lipitor) 40 mg PO HS [facility] Last Admin: 11/10/19 22:48 Dose: 40 mg Bisacodyl (Dulcolax) 10 mg PO DAILYPRN PRN PRN Reason: Constipation Bisacodyl (Dulcolax) 10 mg [place] DAILYPRN PRN PRN Reason: Constipation Bupropion HCl (Wellbutrin) 100 mg PO BID [facility] Last Admin: 11/11/19 09:42 Dose: 100 mg Clonidine (Catapres) 0.1 mg PO BID PRN PRN Reason: SBP > 160 use second Furosemide (Lasix) 40 mg PO 0900,1400 [facility] Last Admin: 11/11/19 14:57 Dose: 40 mg Hydralazine HCl (Apresoline) 10 mg SLOW IVP Q6H PRN PRN Reason: SBP GREATER THAN 160 Promethazine HCl 12.5 mg/ (Sodium Chloride) 50.5 mls @ 202 mls/hr IVPB Q6H PRN PRN Reason: Nausea/vomiting use second Lisinopril (Zestril) 1.25 mg PO DAILY [facility] Last Admin: 11/11/19 09:42 Dose: 1.25 mg Metoprolol Succinate (Toprol Xl) 12.5 mg PO DAILY [facility] Last Admin: 11/11/19 09:44 Dose: 12.5 mg Morphine Sulfate (Morphine) 2 mg SLOW IVP Q4H PRN PRN Reason: Breakthrough Pain Last Admin: 11/10/19 23:36 Dose: 2 mg Nitroglycerin (Nitrostat) 0.4 mg SL Q5MIN PRN PRN Reason: Chest Pain Ondansetron HCl (Zofran) 4 mg IVP Q6H PRN PRN Reason: Nausea/Vomiting use 1st Pantoprazole Sodium (Protonix) 40 mg PO DAILY [facility] Last Admin: 11/11/19 09:44 Dose: 40 mg Polyethylene Glycol (Miralax) 17 gm PO DAILY [facility] Last Admin: 11/11/19 10:10 Dose: Not Given Ticagrelor (Brilinta) 90 mg PO BID [facility] Last Admin: 11/11/19 09:45 Dose: 90 mg Vital Signs & Weight: Vital Signs Temp Pulse Pulse Pulse Resp BP BP 11/11/19 15:50 98.6 F 90 18 11/11/19 14:45 84 16 11/11/19 12:03 98.1 F 79 18 11/11/19 10:49 85 16 11/11/19 09:54 84 93 124/71 11/11/19 09:42 81 126/68 11/11/19 08:17 98.3 F 89 18 BP BP Pulse Ox 11/11/19 15:50 126/60 97 11/11/19 14:45 94 L 11/11/19 12:03 133/67 96 11/11/19 10:49 95 11/11/19 09:54 158/70 H 11/11/19 09:42 11/11/19 08:17 132/69 95 Weight 237 lb - Physical Exam General: alert & oriented x3 HEENT: mucus membranes moist Neck: supple neck Cardiac: regular rate and rhythm Lungs: clear to auscultation Neuro: grossly intact Abdomen: active bowel sounds Extremities: 1+ LE edema Skin: clear Musculoskeletal: no pain - Labs Result Diagrams: 11/11/19 04:11 11/11/19 04:11 Troponin/CKMB CK-MB (CK-2) 2.9 ng/mL (0-6.6) 11/05/19 23:00 Troponin I 0.107 ng/mL (< 0.028) H 11/06/19 09:23 - Telemetry Sinus rhythms and dysrhythmias: sinus rhythm - Assessment/Plan Assessment/Plan: 1. New onset CM EF at 20-25% 2. Acute on chronic systolic heart failure. 3. New onset LBBB. 4. CAD s/p PCI to LAD< complex intervention jailing a moderate sized diagonal. 5. Ischemic dilated CM. PLAN: - ZARIA with Brilinta and aspirin - Continue BB and ACEI, will increase lisinopril to 2.5 mg daily. - Lifevest before discharge. - Likely will need inpatient rehab.
[2019-11-11] MEDS: Atorvastatin Calcium 40 MG TAB PO SCH (20:38)
[2019-11-12] MEDS: Aspirin Chewable 81 MG TAB PO SCH (09:07)
[2019-11-12] MEDS: Lisinopril 2.5 MG TAB PO SCH (09:08)
[2019-11-12] MEDS: TICAGRELOR 90 MG TABLET PO SCH ×2 (09:08→20:52)
[2019-11-12] MEDS: Furosemide 40 MG TAB PO SCH ×2 (09:08→15:06)
[2019-11-12] MEDS: buPROPion HCl 100 MG TAB PO SCH ×2 (09:08→20:52)
[2019-11-12] MEDS: Polyethylene Glycol 3350 17 GM Packet PO SCH (09:08)
[2019-11-12 10:11] LABS: #Eosinphils 0.3 thou/uL (0.0-0.7); #Lymphocytes 0.6 thou/uL (1.20-3.40); #Monocytes 0.9 thou/uL (0.11-0.59); #Neutrophils 5.7 thou/uL (1.40-6.50); %Basophils 0.6 % (0.0-1.0); %Eosinophils 3.6 % (0.0-10.0); %Lymphocytes 7.6 % (21.0-51.0); %Monocytes 11.9 % (0.0-10.0); %Neutrophils 76.4 % (42.0-75.0); Hemoglobin 11.6 g/dL (12.0-16.0); Mean Corpuscular HGB CONC 30.9 g/dL (32.0-36.0); Mean Corpuscular Hemoglobin 29.9 pg (27.0-31.0); Mean Corpuscular Volume 96.8 fL (78.0-98.0); Mean Platelet Volume 7.9 fL (7.4-10.4); Platelet Count 230 thou/uL (130-400); RBC Distribution Width 12.7 % (11.5-14.5); Red Blood Cell (RBC) Count 3.88 mill/uL (4.20-5.40); White Blood Cell (WBC) Count 7.4 thou/uL (4.8-10.8)
[2019-11-12 10:15] LABS: Anion Gap 10 mmol/L (10-20); BUN (Urea Nitrogen) 15 mg/dL (9.8-20.1); Calc. Creatinine Clearance 85 mL/min (70-130); Carbon Dioxide 36 mmol/L (23-31); Chloride 95 mmol/L (98-107); Estimated GFR-MDRD 57; Glucose 112 mg/dL (83-110); Potassium 3.6 mmol/L (3.5-5.1); Sodium 137 mmol/L (136-145)
--- NOTE | 2019-11-12 15:15 | PDOC.HOSPP ---
- Subjective Encounter Date: 11/12/19 Encounter Time: 09:45 Subjective: pt up in bed no complains. - Objective Vital Signs & Weight: Vital Signs (12 hours) Temp Pulse Pulse Pulse Resp BP BP 11/12/19 15:05 98.1 F 75 18 11/12/19 14:22 77 16 11/12/19 11:12 98.1 F 72 18 11/12/19 10:33 84 16 11/12/19 09:23 85 82 140/70 137/67 11/12/19 09:08 83 11/12/19 07:30 97.4 F L 83 20 11/12/19 07:04 82 16 11/12/19 03:35 97.9 F 78 18 BP Pulse Ox Pulse Ox Pulse Ox 11/12/19 15:05 119/63 96 11/12/19 14:22 95 11/12/19 11:12 118/64 95 11/12/19 10:33 94 L 11/12/19 09:23 97 97 11/12/19 09:08 11/12/19 07:30 146/86 H 97 11/12/19 07:04 95 11/12/19 03:35 122/55 L 97 Weight Weight 237 lb I&O: 11/11/19 11/12/19 11/13/19 06:59 06:59 06:59 Intake Total 840 950 Output Total 2250 4200 950 Balance -1410 -3250 -950 Result Diagrams: 11/12/19 09:30 11/12/19 09:30 Hospitalist ROS - Review of Systems Respiratory: denies: cough, dry, shortness of breath, hemoptysis, SOB with excertion, pleuritic pain, sputum, wheezing, other Cardiovascular: denies: chest pain, palpitations, orthopnea, paroxysmal noc. dyspnea, edema, light headedness, other Gastrointestinal: denies: nausea, vomiting, abdominal pain, diarrhea, constipation, melena, hematochezia, other Genitourinary: denies: dysuria, frequency, incontinence, hematuria, retention, other - Medication Medications: Active Medications Generic Name Dose Route Start Last Admin Trade Name Freq PRN Reason Stop Dose Admin Acetaminophen 650 mg 11/06/19 01:36 11/11/19 20:39 Tylenol PO 650 mg Q4H PRN Administration Headache/Fever/Mild Pain (1-3) Hydrocodone Bitart/Acetaminophen 1 tab 11/06/19 01:36 11/10/19 22:48 [place] 5/325 PO 1 tab Q4H PRN Administration Moderate Pain (4-6) Albuterol/Ipratropium 3 ml 11/06/19 07:00 11/12/19 14:22 Duoneb NEB 3 ml [id number] CHRIS Administration Aspirin 81 mg 11/11/19 09:00 11/12/19 09:07 Aspirin Chewable PO 81 mg DAILY CHRIS Administration Atorvastatin Calcium 40 mg 11/06/19 21:00 11/11/19 20:38 Lipitor PO 40 mg HS CHRIS Administration Bupropion HCl 100 mg 11/06/19 09:00 11/12/19 09:08 Wellbutrin PO 100 mg BID CHRIS Administration Furosemide 40 mg 11/10/19 14:00 11/12/19 15:06 Lasix PO 40 mg 0900,1400 CHRIS Administration Lisinopril 2.5 mg 11/12/19 09:00 11/12/19 09:08 Zestril PO 2.5 mg DAILY CHRIS Administration Metoprolol Succinate 12.5 mg 11/11/19 09:00 11/12/19 09:08 Toprol Xl PO 12.5 mg DAILY CHRIS Administration Morphine Sulfate 2 mg 11/06/19 01:35 11/10/19 23:36 Morphine SLOW IVP 2 mg Q4H PRN Administration Breakthrough Pain Pantoprazole Sodium 40 mg 11/06/19 09:00 11/12/19 09:08 Protonix PO 40 mg DAILY CHRIS Administration Polyethylene Glycol 17 gm 11/06/19 09:00 11/12/19 09:08 Miralax PO Not Given DAILY [facility]RIS Ticagrelor 90 mg 11/10/19 21:00 11/12/19 09:08 Brilinta PO 90 mg BID CHRIS Administration - Exam Neck: negative: supple, symmetric, no JVD, no thyromegaly, no lymphadenopathy, no carotid bruit, JVD Heart: negative: RRR, no murmur, no gallops, no rubs, normal peripheral pulses, irregular, diminshed peripheral pulses, murmur present, II/IV, III/IV Respiratory: negative: CTAB, no wheezes, no rales, no ronchi, normal chest expansion, no tachypnea, normal percussion, rales, rhonchi, tachypneic, wheezes Gastrointestinal: negative: soft, non-tender, non-distended, normal bowel sounds , no palpable masses, no hepatomegaly, no splenomegaly, no bruit, no guarding, no rigidity, tender to palpation, distended, diminished bowl sounds, voluntary guarding Skin - other findings: erythema noted to her lower legs Neurological: negative: cranial nerve grossly intact, normal sensation to touch , no weakness, no focal deficits, no new deficit, facial droop, hemiplegia, speech deficit, vision deficit Hosp A/P (1) Abnormal stress test Status: Acute (2) CHF, acute Code(s): I50.9 - HEART FAILURE, UNSPECIFIED Status: Acute (3) NSTEMI (non-ST elevated myocardial infarction) Code(s): I21.4 - NON-ST ELEVATION (NSTEMI) MYOCARDIAL INFARCTION Status: Acute - Plan will discontinue hogue. pt will need a life vest. will need inpatient rehab. will continue brilinta.
--- NOTE | 2019-11-12 18:07 | PDOC.CPN ---
- Subjective Date: 11/12/19 Time: 18:05 Interval history: She is doing better. Her right forearm hematoma has organized, it is still runner but smaller in size. No angina. - Review of Systems General: denies: fever/chills, weight/appetite/sleep changes, night sweats, fatigue Respiratory: denies: cough, congestion, shortness of breath, exercise intolerance Cardiovascular: denies: chest pain, palpitation, edema, paroxysmal nocturnal dyspnea, orthopnea Gastrointestinal: denies: nausea, vomiting, diarrhea, constipation, abd pain, GI bleeding Musculoskeletal: denies: pain, tenderness, stiffness, swelling, arthritis/ arthralgias Neurological: denies: numbness, syncope, seizure, weakness - Objective Allergies/Adverse Reactions: Allergies Allergy/AdvReac Type Severity Reaction Status Date / Time No Known Allergies Allergy Verified 11/06/19 16:47 Visit Medications: Current Medications Acetaminophen (Tylenol) 650 mg PO Q4H PRN PRN Reason: Headache/Fever/Mild Pain (1-3) Last Admin: 11/11/19 20:39 Dose: 650 mg Hydrocodone Bitart/Acetaminophen ([place] 5/325) 1 tab PO Q4H PRN PRN Reason: Moderate Pain (4-6) Last Admin: 11/10/19 22:48 Dose: 1 tab Albuterol/Ipratropium (Duoneb) 3 ml NEB [id number] SCH Last Admin: 11/12/19 14:22 Dose: 3 ml Albuterol/Ipratropium (Duoneb) 3 ml NEB [id number] PRN PRN Reason: SOB &/or Wheezing Aspirin (Aspirin Chewable) 81 mg PO DAILY [facility] Last Admin: 11/12/19 09:07 Dose: 81 mg Atorvastatin Calcium (Lipitor) 40 mg PO HS [facility] Last Admin: 11/11/19 20:38 Dose: 40 mg Bisacodyl (Dulcolax) 10 mg PO DAILYPRN PRN PRN Reason: Constipation Bisacodyl (Dulcolax) [address] DAILYPRN PRN PRN Reason: Constipation Bupropion HCl (Wellbutrin) 100 mg PO BID [facility] Last Admin: 11/12/19 09:08 Dose: 100 mg Clonidine (Catapres) 0.1 mg PO BID PRN PRN Reason: SBP > 160 use second Furosemide (Lasix) 40 mg PO 0900,1400 [facility] Last Admin: 11/12/19 15:06 Dose: 40 mg Hydralazine HCl (Apresoline) 10 mg SLOW IVP Q6H PRN PRN Reason: SBP GREATER THAN 160 Promethazine HCl 12.5 mg/ (Sodium Chloride) 50.5 mls @ 202 mls/hr IVPB Q6H PRN PRN Reason: Nausea/vomiting use second Lisinopril (Zestril) 2.5 mg PO DAILY [facility] Last Admin: 11/12/19 09:08 Dose: 2.5 mg Metoprolol Succinate (Toprol Xl) 12.5 mg PO DAILY [facility] Last Admin: 11/12/19 09:08 Dose: 12.5 mg Morphine Sulfate (Morphine) 2 mg SLOW IVP Q4H PRN PRN Reason: Breakthrough Pain Last Admin: 11/10/19 23:36 Dose: 2 mg Nitroglycerin (Nitrostat) 0.4 mg SL Q5MIN PRN PRN Reason: Chest Pain Ondansetron HCl (Zofran) 4 mg IVP Q6H PRN PRN Reason: Nausea/Vomiting use 1st Pantoprazole Sodium (Protonix) 40 mg PO DAILY [facility] Last Admin: 11/12/19 09:08 Dose: 40 mg Polyethylene Glycol (Miralax) 17 gm PO DAILY [facility] Last Admin: 11/12/19 09:08 Dose: Not Given Ticagrelor (Brilinta) 90 mg PO BID [facility] Last Admin: 11/12/19 09:08 Dose: 90 mg Vital Signs & Weight: Vital Signs Temp Pulse Pulse Pulse Resp BP BP 11/12/19 15:05 98.1 F 75 18 11/12/19 14:22 77 16 11/12/19 11:12 98.1 F 72 18 11/12/19 10:33 84 16 11/12/19 09:23 85 82 140/70 137/67 11/12/19 09:08 83 11/12/19 07:30 97.4 F L 83 20 11/12/19 07:04 82 16 BP Pulse Ox Pulse Ox Pulse Ox 11/12/19 15:05 119/63 96 11/12/19 14:22 95 11/12/19 11:12 118/64 95 11/12/19 10:33 94 L 11/12/19 09:23 97 97 02/05/20 09:08 11/12/19 07:30 146/86 H 97 11/12/19 07:04 95 Weight 237 lb - Physical Exam General: alert & oriented x3 HEENT: mucus membranes moist Neck: supple neck Cardiac: regular rate and rhythm Lungs: clear to auscultation Neuro: grossly intact Abdomen: active bowel sounds Extremities: 1+ LE edema Skin: clear Musculoskeletal: no pain - Labs Result Diagrams: 11/12/19 09:30 11/12/19 09:30 Troponin/CKMB CK-MB (CK-2) 2.9 ng/mL (0-6.6) 11/05/19 23:00 Troponin I 0.107 ng/mL (< 0.028) H 11/06/19 09:23 - Telemetry Sinus rhythms and dysrhythmias: sinus rhythm - Assessment/Plan Assessment/Plan: 1. New onset CM EF at 20-25% 2. Acute on chronic systolic heart failure. 3. New onset LBBB. 4. CAD s/p PCI to LAD< complex intervention jailing a moderate sized diagonal. 5. Ischemic dilated CM. PLAN: - ZARIA with Brilinta and aspirin - Continue BB and ACEI. - Lifevest before discharge. - Likely will need inpatient rehab. - Monitor hematoma.
[2019-11-12] MEDS: Atorvastatin Calcium 40 MG TAB PO SCH (20:52)
[2019-11-12] MEDS: Acetaminophen 325 MG TAB PO PRN (22:03)
[2019-11-13] MEDS: buPROPion HCl 100 MG TAB PO SCH ×2 (09:42→20:07)
[2019-11-13] MEDS: Aspirin Chewable 81 MG TAB PO SCH (09:42)
[2019-11-13] MEDS: Lisinopril 2.5 MG TAB PO SCH (09:43)
[2019-11-13] MEDS: TICAGRELOR 90 MG TABLET PO SCH ×2 (09:51→20:12)
[2019-11-13] MEDS: Furosemide 40 MG TAB PO SCH ×2 (09:51→15:35)
[2019-11-13] MEDS: Polyethylene Glycol 3350 17 GM Packet PO SCH (09:52)
[2019-11-13 13:20] VITALS: BMI 37.6
--- NOTE | 2019-11-13 17:02 | PDOC.HOSPP ---
- Subjective Encounter Date: 11/13/19 Encounter Time: 10:15 Subjective: pt up in bed no complains - Objective Vital Signs & Weight: Vital Signs (12 hours) Temp Pulse Pulse Pulse Resp BP BP 11/13/19 15:32 98.1 F 71 18 11/13/19 15:20 70 14 11/13/19 12:40 97.6 F 76 18 11/13/19 10:54 71 16 11/13/19 09:43 76 11/13/19 09:14 79 80 125/60 118/65 11/13/19 08:33 76 14 11/13/19 07:45 97.6 F 83 18 BP Pulse Ox Pulse Ox Pulse Ox Pulse Ox 11/13/19 15:32 100/52 L 99 11/13/19 15:20 99 11/13/19 12:40 104/60 98 11/13/19 10:54 96 11/13/19 09:43 11/13/19 09:14 94 L 95 91 L 11/13/19 08:33 98 11/13/19 07:45 143/79 H 95 Weight Admit Weight 237 lb 1 oz Weight 226 lb 4 oz I&O: 11/12/19 11/13/19 11/14/19 06:59 06:59 06:59 Intake Total 950 1320 Output Total 4200 3850 Balance -3250 -2530 Result Diagrams: 11/12/19 09:30 11/12/19 09:30 Hospitalist ROS - Review of Systems Cardiovascular: denies: chest pain, palpitations, orthopnea, paroxysmal noc. dyspnea, edema, light headedness, other Gastrointestinal: denies: nausea, vomiting, abdominal pain, diarrhea, constipation, melena, hematochezia, other Genitourinary: denies: dysuria, frequency, incontinence, hematuria, retention, other Musculoskeletal: denies: neck pain, shoulder pain, arm pain, back pain, hand pain, leg pain, foot pain, other - Medication Medications: Active Medications Generic Name Dose Route Start Last Admin Trade Name Freq PRN Reason Stop Dose Admin Acetaminophen 650 mg 11/06/19 01:36 11/12/19 22:03 Tylenol PO 650 mg Q4H PRN Administration Headache/Fever/Mild Pain (1-3) Hydrocodone Bitart/Acetaminophen 1 tab 11/06/19 01:36 11/10/19 22:48 [place] 5/325 PO 1 tab Q4H PRN Administration Moderate Pain (4-6) Albuterol/Ipratropium 3 ml 11/06/19 07:00 11/13/19 15:20 Duoneb NEB 3 ml [id number] CHRIS Administration Aspirin 81 mg 11/11/19 09:00 11/13/19 09:42 Aspirin Chewable PO 81 mg DAILY CHRIS Administration Atorvastatin Calcium 40 mg 11/06/19 21:00 11/12/19 20:52 Lipitor PO 40 mg HS CHRIS Administration Bupropion HCl 100 mg 11/06/19 09:00 11/13/19 09:42 Wellbutrin PO 100 mg BID CHRIS Administration Furosemide 40 mg 11/10/19 14:00 11/13/19 15:35 Lasix PO Not Given 0900,1400 [facility] Lisinopril 2.5 mg 11/12/19 09:00 11/13/19 09:43 Zestril PO 2.5 mg DAILY [facility] Administration Metoprolol Succinate 12.5 mg 11/11/19 09:00 11/13/19 09:43 Toprol Xl PO 12.5 mg DAILY [facility] Administration Morphine Sulfate 2 mg 11/06/19 01:35 11/10/19 23:36 Morphine SLOW IVP 2 mg Q4H PRN Administration Breakthrough Pain Pantoprazole Sodium 40 mg 11/06/19 09:00 11/13/19 09:43 Protonix PO 40 mg DAILY [facility] Administration Polyethylene Glycol 17 gm 11/06/19 09:00 11/13/19 09:52 Miralax PO Not Given DAILY [facility] Ticagrelor 90 mg 11/10/19 21:00 11/13/19 09:51 Brilinta PO 90 mg BID [facility] Administration - Exam Neck: negative: supple, symmetric, no JVD, no thyromegaly, no lymphadenopathy, no carotid bruit, JVD Heart: negative: RRR, no murmur, no gallops, no rubs, normal peripheral pulses, irregular, diminshed peripheral pulses, murmur present, II/IV, III/IV Respiratory: negative: CTAB, no wheezes, no rales, no ronchi, normal chest expansion, no tachypnea, normal percussion, rales, rhonchi, tachypneic, wheezes Hosp A/P (1) Abnormal stress test Status: Acute (2) CHF, acute Code(s): I50.9 - HEART FAILURE, UNSPECIFIED Status: Acute Qualifiers: Heart failure type: systolic Qualified Code(s): I50.21 - Acute systolic ( congestive) heart failure (3) NSTEMI (non-ST elevated myocardial infarction) Code(s): I21.4 - NON-ST ELEVATION (NSTEMI) MYOCARDIAL INFARCTION Status: Acute - Plan will discontinue hogue. pt will need a life vest. will need inpatient rehab. will continue brilinta. 2/ Her hematoma is stable, will monitor. pt going to inpatient rehab.
--- NOTE | 2019-11-13 17:11 | PDOC.CPN ---
- Subjective Date: 11/13/19 Time: 17:09 Interval history: She is doing well.l Her right forearm hematoma has decreased in size and is less tense. - Review of Systems General: denies: fever/chills, weight/appetite/sleep changes, night sweats, fatigue Respiratory: denies: cough, congestion, shortness of breath, exercise intolerance Cardiovascular: denies: chest pain, palpitation, edema, paroxysmal nocturnal dyspnea, orthopnea Gastrointestinal: denies: nausea, vomiting, diarrhea, constipation, abd pain, GI bleeding Musculoskeletal: denies: pain, tenderness, stiffness, swelling, arthritis/ arthralgias Neurological: denies: numbness, syncope, seizure, weakness - Objective Allergies/Adverse Reactions: Allergies Allergy/AdvReac Type Severity Reaction Status Date / Time No Known Allergies Allergy Verified 11/06/19 16:47 Visit Medications: Current Medications Acetaminophen (Tylenol) 650 mg PO Q4H PRN PRN Reason: Headache/Fever/Mild Pain (1-3) Last Admin: 11/12/19 22:03 Dose: 650 mg Hydrocodone Bitart/Acetaminophen ([place] 5/325) 1 tab PO Q4H PRN PRN Reason: Moderate Pain (4-6) Last Admin: 11/10/19 22:48 Dose: 1 tab Albuterol/Ipratropium (Duoneb) 3 ml NEB [id number] SCH Last Admin: 11/13/19 15:20 Dose: 3 ml Albuterol/Ipratropium (Duoneb) 3 ml NEB [id number] PRN PRN Reason: SOB &/or Wheezing Aspirin (Aspirin Chewable) 81 mg PO DAILY [facility] Last Admin: 11/13/19 09:42 Dose: 81 mg Atorvastatin Calcium (Lipitor) 40 mg PO HS [facility] Last Admin: 11/12/19 20:52 Dose: 40 mg Bisacodyl (Dulcolax) 10 mg PO DAILYPRN PRN PRN Reason: Constipation Bisacodyl (Dulcolax) 10 mg [place] DAILYPRN PRN PRN Reason: Constipation Bupropion HCl (Wellbutrin) 100 mg PO BID [facility] Last Admin: 11/13/19 09:42 Dose: 100 mg Clonidine (Catapres) 0.1 mg PO BID PRN PRN Reason: SBP > 160 use second Furosemide (Lasix) 40 mg PO 0900,1400 [facility] Last Admin: 11/13/19 15:35 Dose: Not Given Hydralazine HCl (Apresoline) 10 mg SLOW IVP Q6H PRN PRN Reason: SBP GREATER THAN 160 Promethazine HCl 12.5 mg/ (Sodium Chloride) 50.5 mls @ 202 mls/hr IVPB Q6H PRN PRN Reason: Nausea/vomiting use second Lisinopril (Zestril) 2.5 mg PO DAILY [facility] Last Admin: 11/13/19 09:43 Dose: 2.5 mg Metoprolol Succinate (Toprol Xl) 12.5 mg PO DAILY [facility] Last Admin: 11/13/19 09:43 Dose: 12.5 mg Morphine Sulfate (Morphine) 2 mg SLOW IVP Q4H PRN PRN Reason: Breakthrough Pain Last Admin: 11/10/19 23:36 Dose: 2 mg Nitroglycerin (Nitrostat) 0.4 mg SL Q5MIN PRN PRN Reason: Chest Pain Ondansetron HCl (Zofran) 4 mg IVP Q6H PRN PRN Reason: Nausea/Vomiting use 1st Pantoprazole Sodium (Protonix) 40 mg PO DAILY [facility] Last Admin: 11/13/19 09:43 Dose: 40 mg Polyethylene Glycol (Miralax) 17 gm PO DAILY [facility] Last Admin: 11/13/19 09:52 Dose: Not Given Ticagrelor (Brilinta) 90 mg PO BID [facility] Last Admin: 11/13/19 09:51 Dose: 90 mg Vital Signs & Weight: Vital Signs Temp Pulse Pulse Pulse Resp BP BP 11/13/19 15:32 98.1 F 71 18 11/13/19 15:20 70 14 11/13/19 12:40 97.6 F 76 18 11/13/19 10:54 71 16 11/13/19 09:43 76 11/13/19 09:14 79 80 125/60 118/65 11/13/19 08:33 76 14 11/13/19 07:45 97.6 F 83 18 BP Pulse Ox Pulse Ox Pulse Ox Pulse Ox 11/13/19 15:32 100/52 L 99 11/13/19 15:20 99 11/13/19 12:40 104/60 98 11/13/19 10:54 96 11/13/19 09:43 11/13/19 09:14 94 L 95 91 L 11/13/19 08:33 98 11/13/19 07:45 143/79 H 95 Admit Weight 237 lb 1 oz Weight 226 lb 4 oz - Physical Exam General: alert & oriented x3 HEENT: mucus membranes moist Neck: supple neck Cardiac: regular rate and rhythm Lungs: clear to auscultation Neuro: grossly intact Abdomen: active bowel sounds Extremities: no edema Skin: clear Musculoskeletal: no pain - Labs Result Diagrams: 11/12/19 09:30 11/12/19 09:30 Troponin/CKMB CK-MB (CK-2) 2.9 ng/mL (0-6.6) 11/05/19 23:00 Troponin I 0.107 ng/mL (< 0.028) H 11/06/19 09:23 - Telemetry Sinus rhythms and dysrhythmias: sinus rhythm - Assessment/Plan Assessment/Plan: 1. New onset CM EF at 20-25% 2. Acute on chronic systolic heart failure. 3. New onset LBBB. 4. CAD s/p PCI to LAD, complex intervention jailing a moderate sized diagonal. 5. Ischemic dilated CM. PLAN: - ZARIA will switch brilinta to plavix as she developed a spontaneous LEFT arm hematoma, small in size on top of the right arm hematoma. Hgb stable. - Continue BB and ACEI. - Lifevest already with her in the room. - Likely will need inpatient rehab. - Monitor hematoma.
[2019-11-13] MEDS: Atorvastatin Calcium 40 MG TAB PO SCH (20:08)
[2019-11-14] MEDS: Polyethylene Glycol 3350 17 GM Packet PO SCH (08:30)
[2019-11-14] MEDS: Lisinopril 2.5 MG TAB PO SCH (08:31)
[2019-11-14] MEDS: Aspirin Chewable 81 MG TAB PO SCH (08:31)
[2019-11-14] MEDS: Furosemide 40 MG TAB PO SCH (08:34)
[2019-11-14] MEDS: buPROPion HCl 100 MG TAB PO SCH ×2 (08:34→21:49)
[2019-11-14] MEDS: Clopidogrel Bisulfate 75 MG TAB PO SCH (08:34)
--- NOTE | 2019-11-14 15:35 | PDOC.HOSPP ---
- Subjective Encounter Date: 11/14/19 Encounter Time: 10:45 Subjective: pt up in bed no complains - Objective Vital Signs & Weight: Vital Signs (12 hours) Temp Pulse Pulse Pulse Resp BP BP 11/14/19 15:08 75 18 11/14/19 11:04 83 73 143/68 H 130/66 11/14/19 11:00 97.7 F 85 16 11/14/19 10:35 76 14 11/14/19 07:30 97.8 F 79 16 11/14/19 06:34 72 14 11/14/19 04:00 97.5 F L 77 18 BP BP Pulse Ox 11/14/19 15:08 96 11/14/19 11:04 11/14/19 11:00 130/75 96 11/14/19 10:35 98 11/14/19 07:30 125/66 95 11/14/19 06:34 98 11/14/19 04:00 130/67 97 Weight Admit Weight 237 lb 1 oz Weight 220 lb 1.6 oz I&O: 11/13/19 11/14/19 11/15/19 06:59 06:59 06:59 Intake Total 1320 1020 Output Total 3850 2009 Balance -2530 -990 Result Diagrams: 11/12/19 09:30 11/12/19 09:30 Hospitalist ROS - Review of Systems Cardiovascular: denies: chest pain, palpitations, orthopnea, paroxysmal noc. dyspnea, edema, light headedness, other Gastrointestinal: denies: nausea, vomiting, abdominal pain, diarrhea, constipation, melena, hematochezia, other Genitourinary: denies: dysuria, frequency, incontinence, hematuria, retention, other - Medication Medications: Active Medications Generic Name Dose Route Start Last Admin Trade Name Freq PRN Reason Stop Dose Admin Acetaminophen 650 mg 11/06/19 01:36 11/12/19 22:03 Tylenol PO 650 mg Q4H PRN Administration Headache/Fever/Mild Pain (1-3) Hydrocodone Bitart/Acetaminophen 1 tab 11/06/19 01:36 11/10/19 22:48 [place] 5/325 PO 1 tab Q4H PRN Administration Moderate Pain (4-6) Albuterol/Ipratropium 3 ml 11/06/19 07:00 11/14/19 15:08 Duoneb NEB 3 ml [id number] CHRIS Administration Aspirin 81 mg 11/11/19 09:00 11/14/19 08:31 Aspirin Chewable PO 81 mg DAILY CHRIS Administration Atorvastatin Calcium 40 mg 11/06/19 21:00 11/13/19 20:08 Lipitor PO 40 mg HS CHRIS Administration Bupropion HCl 100 mg 11/06/19 09:00 11/14/19 08:34 Wellbutrin PO 100 mg BID CHRIS Administration Clopidogrel Bisulfate 75 mg 11/14/19 09:00 11/14/19 08:34 Plavix PO 75 mg DAILY [facility]IS Administration Furosemide 40 mg 11/14/19 07:30 11/14/19 08:34 Lasix PO 40 mg DAILY-AC CHRIS Administration Lisinopril 2.5 mg 11/12/19 09:00 11/14/19 08:31 Zestril PO 2.5 mg DAILY [facility]IS Administration Metoprolol Succinate 12.5 mg 11/11/19 09:00 11/14/19 08:31 Toprol Xl PO 12.5 mg DAILY [facility]IS Administration Morphine Sulfate 2 mg 11/06/19 01:35 11/10/19 23:36 Morphine SLOW IVP 2 mg Q4H PRN Administration Breakthrough Pain Pantoprazole Sodium 40 mg 11/06/19 09:00 11/14/19 08:34 Protonix PO 40 mg DAILY [facility]RIS Administration Polyethylene Glycol 17 gm 11/06/19 09:00 11/14/19 08:30 Miralax PO Not Given DAILY [facility]IS - Exam Heart: negative: RRR, no murmur, no gallops, no rubs, normal peripheral pulses, irregular, diminshed peripheral pulses, murmur present, II/IV, III/IV Respiratory: negative: CTAB, no wheezes, no rales, no ronchi, normal chest expansion, no tachypnea, normal percussion, rales, rhonchi, tachypneic, wheezes Gastrointestinal: negative: soft, non-tender, non-distended, normal bowel sounds , no palpable masses, no hepatomegaly, no splenomegaly, no bruit, no guarding, no rigidity, tender to palpation, distended, diminished bowl sounds, voluntary guarding Extremities: negative: no cyanosis, no clubbing, no edema, 1+ LE edema, 2+ LE edema, clubbing Skin - other findings: hematoma to right arm and one to left arm. she does have a rash to legs Hosp A/P (1) Abnormal stress test Status: Acute (2) CHF, acute Code(s): I50.9 - HEART FAILURE, UNSPECIFIED Status: Acute Qualifiers: Heart failure type: systolic Qualified Code(s): I50.21 - Acute systolic ( congestive) heart failure Plan: new (3) NSTEMI (non-ST elevated myocardial infarction) Code(s): I21.4 - NON-ST ELEVATION (NSTEMI) MYOCARDIAL INFARCTION Status: Acute (4) Hematoma Code(s): T14.8XXA - OTHER INJURY OF UNSPECIFIED BODY REGION, INITIAL ENCOUNTER Status: Acute (5) LBBB (left bundle branch block) Code(s): I44.7 - LEFT BUNDLE-BRANCH BLOCK, UNSPECIFIED Status: Acute - Plan will discontinue hogue. pt will need a life vest. will need inpatient rehab. will continue brilinta. 11/13 Her hematoma is stable, will monitor. pt going to inpatient rehab. 11/14 will check labs in am. Awaiting inpatient approval. pt medically stable to be discharged. brilinta changed to plavix.
--- NOTE | 2019-11-14 16:14 | PDOC.CPN ---
- Subjective Date: 11/14/19 Time: 16:12 Interval history: Doing well. 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 No angina, Breathing at baseline. - Review of Systems General: denies: fever/chills, weight/appetite/sleep changes, night sweats, fatigue Respiratory: denies: cough, congestion, shortness of breath, exercise intolerance Cardiovascular: denies: chest pain, palpitation, edema, paroxysmal nocturnal dyspnea, orthopnea Gastrointestinal: denies: nausea, vomiting, diarrhea, constipation, abd pain, GI bleeding Musculoskeletal: denies: pain, tenderness, stiffness, swelling, arthritis/ arthralgias Neurological: denies: numbness, syncope, seizure, weakness - Objective Allergies/Adverse Reactions: Allergies Allergy/AdvReac Type Severity Reaction Status Date / Time No Known Allergies Allergy Verified 11/06/19 16:47 Visit Medications: Current Medications Acetaminophen (Tylenol) 650 mg PO Q4H PRN PRN Reason: Headache/Fever/Mild Pain (1-3) Last Admin: 11/12/19 22:03 Dose: 650 mg Hydrocodone Bitart/Acetaminophen ([place] 5/325) 1 tab PO Q4H PRN PRN Reason: Moderate Pain (4-6) Last Admin: 11/10/19 22:48 Dose: 1 tab Albuterol/Ipratropium (Duoneb) 3 ml NEB [id number] SCH Last Admin: 11/14/19 15:08 Dose: 3 ml Albuterol/Ipratropium (Duoneb) 3 ml NEB [id number] PRN PRN Reason: SOB &/or Wheezing Aspirin (Aspirin Chewable) 81 mg PO DAILY [facility] Last Admin: 11/14/19 08:31 Dose: 81 mg Atorvastatin Calcium (Lipitor) 40 mg PO HS [facility] Last Admin: 11/13/19 20:08 Dose: 40 mg Bisacodyl (Dulcolax) 10 mg PO DAILYPRN PRN PRN Reason: Constipation Bisacodyl (Dulcolax) 10 mg [place] DAILYPRN PRN PRN Reason: Constipation Bupropion HCl (Wellbutrin) 100 mg PO BID [facility] Last Admin: 11/14/19 08:34 Dose: 100 mg Clonidine (Catapres) 0.1 mg PO BID PRN PRN Reason: SBP > 160 use second Clopidogrel Bisulfate (Plavix) 75 mg PO DAILY [facility] Last Admin: 11/14/19 08:34 Dose: 75 mg Furosemide (Lasix) 40 mg PO DAILY-AC [facility] Last Admin: 11/14/19 08:34 Dose: 40 mg Hydralazine HCl (Apresoline) 10 mg SLOW IVP Q6H PRN PRN Reason: SBP GREATER THAN 160 Promethazine HCl 12.5 mg/ (Sodium Chloride) 50.5 mls @ 202 mls/hr IVPB Q6H PRN PRN Reason: Nausea/vomiting use second Lisinopril (Zestril) 2.5 mg PO DAILY [facility] Last Admin: 11/14/19 08:31 Dose: 2.5 mg Metoprolol Succinate (Toprol Xl) 12.5 mg PO DAILY [facility] Last Admin: 11/14/19 08:31 Dose: 12.5 mg Morphine Sulfate (Morphine) 2 mg SLOW IVP Q4H PRN PRN Reason: Breakthrough Pain Last Admin: 11/10/19 23:36 Dose: 2 mg Nitroglycerin (Nitrostat) 0.4 mg SL Q5MIN PRN PRN Reason: Chest Pain Ondansetron HCl (Zofran) 4 mg IVP Q6H PRN PRN Reason: Nausea/Vomiting use 1st Pantoprazole Sodium (Protonix) 40 mg PO DAILY [facility] Last Admin: 11/14/19 08:34 Dose: 40 mg Polyethylene Glycol (Miralax) 17 gm PO DAILY [facility] Last Admin: 11/14/19 08:30 Dose: Not Given Vital Signs & Weight: Vital Signs Temp Pulse Pulse Pulse Resp BP BP 11/14/19 15:10 97.8 F 75 16 11/14/19 15:08 75 18 11/14/19 11:04 83 73 143/68 H 130/66 11/14/19 11:00 97.7 F 85 16 11/14/19 10:35 76 14 11/14/19 07:30 97.8 F 79 16 11/14/19 06:34 72 14 BP BP Pulse Ox 11/14/19 15:10 110/59 L 99 11/14/19 15:08 96 11/14/19 11:04 11/14/19 11:00 130/75 96 11/14/19 10:35 98 11/14/19 07:30 125/66 95 11/14/19 06:34 98 Admit Weight 237 lb 1 oz Weight 220 lb 1.6 oz - Physical Exam General: alert & oriented x3 HEENT: mucus membranes moist Neck: supple neck Cardiac: regular rate and rhythm Lungs: clear to auscultation Neuro: grossly intact Abdomen: active bowel sounds Extremities: 1+ LE edema Skin: clear Musculoskeletal: no pain - Labs Result Diagrams: 11/12/19 09:30 11/12/19 09:30 Troponin/CKMB CK-MB (CK-2) 2.9 ng/mL (0-6.6) 11/05/19 23:00 Troponin I 0.107 ng/mL (< 0.028) H 11/06/19 09:23 - Telemetry Sinus rhythms and dysrhythmias: sinus rhythm - Assessment/Plan Assessment/Plan: 1. New onset CM EF at 20-25% 2. Acute on chronic systolic heart failure. 3. New onset LBBB. 4. CAD s/p PCI to LAD, complex intervention jailing a moderate sized diagonal. 5. Ischemic dilated CM. PLAN: - ZARIA, switched brilinta to plavix due to spontaneous LEFT arm hematoma small in size, this is on top of the larger RIGHT arm hematoma which was thought related to radial intervention. Hgb remains stable. - Continue BB and ACEI. - Lifevest in the room. - Will need inpatient rehab. - Monitor hematoma, better now.
[2019-11-14] MEDS: Atorvastatin Calcium 40 MG TAB PO SCH (21:49)
[2019-11-15 04:37] LABS: #Eosinphils 0.2 thou/uL (0.0-0.7); #Lymphocytes 0.8 thou/uL (1.20-3.40); #Monocytes 0.6 thou/uL (0.11-0.59); #Neutrophils 3.3 thou/uL (1.40-6.50); %Basophils 0.7 % (0.0-1.0); %Eosinophils 5.1 % (0.0-10.0); %Lymphocytes 16.5 % (21.0-51.0); %Monocytes 11.5 % (0.0-10.0); %Neutrophils 66.3 % (42.0-75.0); Mean Corpuscular Hemoglobin 30.8 pg (27.0-31.0); Mean Corpuscular Volume 96.4 fL (78.0-98.0); Mean Platelet Volume 7.5 fL (7.4-10.4); Platelet Count 258 thou/uL (130-400); RBC Distribution Width 12.5 % (11.5-14.5); Red Blood Cell (RBC) Count 3.56 mill/uL (4.20-5.40); White Blood Cell (WBC) Count 4.9 thou/uL (4.8-10.8)
[2019-11-15 04:57] LABS: Anion Gap 10 mmol/L (10-20); BUN (Urea Nitrogen) 16 mg/dL (9.8-20.1); Calc. Creatinine Clearance 87 mL/min (70-130); Calcium 8.8 mg/dL (7.8-10.44); Carbon Dioxide 36 mmol/L (23-31); Chloride 97 mmol/L (98-107); Estimated GFR-MDRD 63; Glucose 97 mg/dL (83-110); Potassium 3.5 mmol/L (3.5-5.1); Sodium 139 mmol/L (136-145)
[2019-11-15] MEDS: Clopidogrel Bisulfate 75 MG TAB PO SCH (08:58)
[2019-11-15] MEDS: buPROPion HCl 100 MG TAB PO SCH (08:58)
[2019-11-15] MEDS: Lisinopril 2.5 MG TAB PO SCH (08:58)
[2019-11-15] MEDS: Furosemide 40 MG TAB PO SCH (08:58)
[2019-11-15] MEDS: Aspirin Chewable 81 MG TAB PO SCH (08:58)
[2019-11-15] MEDS: Polyethylene Glycol 3350 17 GM Packet PO SCH (08:58)
--- NOTE | 2019-11-15 09:52 | PDOC.CPN ---
- Subjective Date: 11/15/19 Time: 08:10 Interval history: Ms. Bran is awake, watching TV. Slept well, no acute complaints or concerns. LUE hematoma, RUE hematoma, right radial hematoma improving. Awaiting placement at inpatient Rehab. No overnight events on telemetry. Denies anginal pain, SOB, N/V/D. - Review of Systems General: denies: fever/chills, weight/appetite/sleep changes, night sweats, fatigue Respiratory: reports: cough (nonproductive) Cardiovascular: reports: edema Gastrointestinal: denies: nausea, vomiting, diarrhea, constipation, abd pain, GI bleeding Musculoskeletal: denies: pain, tenderness, stiffness, swelling, arthritis/ arthralgias - Objective Allergies/Adverse Reactions: Allergies Allergy/AdvReac Type Severity Reaction Status Date / Time No Known Allergies Allergy Verified 11/06/19 16:47 Visit Medications: Current Medications Acetaminophen (Tylenol) 650 mg PO Q4H PRN PRN Reason: Headache/Fever/Mild Pain (1-3) Last Admin: 11/12/19 22:03 Dose: 650 mg Hydrocodone Bitart/Acetaminophen ([place] 5/325) 1 tab PO Q4H PRN PRN Reason: Moderate Pain (4-6) Last Admin: 11/10/19 22:48 Dose: 1 tab Albuterol/Ipratropium (Duoneb) 3 ml NEB [id number] SCH Last Admin: 11/15/19 07:30 Dose: 3 ml Albuterol/Ipratropium (Duoneb) 3 ml NEB [id number] PRN PRN Reason: SOB &/or Wheezing Aspirin (Aspirin Chewable) 81 mg PO DAILY [facility] Last Admin: 11/15/19 08:58 Dose: 81 mg Atorvastatin Calcium (Lipitor) 40 mg PO HS [facility] Last Admin: 11/14/19 21:49 Dose: 40 mg Bisacodyl (Dulcolax) 10 mg PO DAILYPRN PRN PRN Reason: Constipation Bisacodyl (Dulcolax) 10 mg [place] DAILYPRN PRN PRN Reason: Constipation Bupropion HCl (Wellbutrin) 100 mg PO BID [facility] Last Admin: 11/15/19 08:58 Dose: 100 mg Clonidine (Catapres) 0.1 mg PO BID PRN PRN Reason: SBP > 160 use second Clopidogrel Bisulfate (Plavix) 75 mg PO DAILY [facility] Last Admin: 11/15/19 08:58 Dose: 75 mg Furosemide (Lasix) 40 mg PO DAILY-AC [facility] Last Admin: 11/15/19 08:58 Dose: 40 mg Hydralazine HCl (Apresoline) 10 mg SLOW IVP Q6H PRN PRN Reason: SBP GREATER THAN 160 Promethazine HCl 12.5 mg/ (Sodium Chloride) 50.5 mls @ 202 mls/hr IVPB Q6H PRN PRN Reason: Nausea/vomiting use second Lisinopril (Zestril) 2.5 mg PO DAILY [facility] Last Admin: 11/15/19 08:58 Dose: 2.5 mg Metoprolol Succinate (Toprol Xl) 12.5 mg PO DAILY [facility] Last Admin: 11/15/19 08:58 Dose: 12.5 mg Morphine Sulfate (Morphine) 2 mg SLOW IVP Q4H PRN PRN Reason: Breakthrough Pain Last Admin: 11/10/19 23:36 Dose: 2 mg Nitroglycerin (Nitrostat) 0.4 mg SL Q5MIN PRN PRN Reason: Chest Pain Ondansetron HCl (Zofran) 4 mg IVP Q6H PRN PRN Reason: Nausea/Vomiting use 1st Pantoprazole Sodium (Protonix) 40 mg PO DAILY [facility] Last Admin: 11/15/19 08:58 Dose: 40 mg Polyethylene Glycol (Miralax) 17 gm PO DAILY [facility] Last Admin: 11/15/19 08:58 Dose: Not Given Vital Signs & Weight: Vital Signs Temp Pulse Resp BP BP Pulse Ox 11/15/19 07:30 67 18 94 L 11/15/19 07:00 97.2 F L 72 16 131/71 92 L 11/15/19 04:00 97.7 F 71 14 150/69 H 92 L Admit Weight 237 lb 1 oz Weight 227 lb 4.8 oz - Quality Measures Condition: Coronary Artery Disease, Heart Failure CV meds: Beta Ricky: Yes, ALEXI/ARB: Yes, Statin: Yes, ASA: Yes, Plavix/Effient/ Brilinta: Yes, Anticoagulant: No - Medication Contraindications No Anticoagulant reason: Treatment not indicated - Physical Exam General: alert & oriented x3, appears well HEENT: mucus membranes moist, normocephaly Neck: supple neck, no JVD/HJR, no bruit Cardiac: regular rate and rhythm, no murmur, S1/S2 Lungs: clear to auscultation, no wheeze, rales, rhonchi Neuro: grossly intact Abdomen: active bowel sounds, soft, non-tender Extremities: 1+ LE edema Skin: brusing (RUE hematoma, LUE hematoma, right radial cath site hematoma-all resolving, scattered ecchymosis in various stages of healing) Musculoskeletal: normal range of motion - Labs Result Diagrams: 11/15/19 04:28 11/15/19 04:28 Troponin/CKMB CK-MB (CK-2) 2.9 ng/mL (0-6.6) 11/05/19 23:00 Troponin I 0.107 ng/mL (< 0.028) H 11/06/19 09:23 - Telemetry Sinus rhythms and dysrhythmias: sinus rhythm (PACs, PVCs) - Assessment/Plan Assessment/Plan: 1. New onset CM EF at 20-25%-continue BB, ACEi. Fitted for LifeVest, at bedside. 2. Acute on chronic systolic heart failure-volume status stable. Continue diuretics. 3. New onset LBBB. 4. CAD s/p PCI to LAD, complex intervention jailing a moderate sized diagonal- no anginal symptoms. Continue DAPT (Brilinta held 2/2 spontaneous hematoma to LUE (resolving), RUE hematoma post-radial intervention) 5. Ischemic dilated CM. PLAN: - Will need inpatient rehab. - Monitor hematoma, continues to improve.
[2019-11-15 15:20] VITALS: BP 120/68; TEMP 98
[2019-11-15] MEDS: Acetaminophen 325 MG TAB PO PRN (19:46)
--- NOTE | 2019-11-15 20:42 | DIS ---
DATE OF ADMISSION: 11/05/2019 DATE OF DISCHARGE: 11/15/2019 PRIMARY CARE PROVIDER: Christina Samaniego MD DISCHARGE DIAGNOSES: 1. Acute combined systolic and diastolic congestive heart failure, [place] Heart Association class III. 2. [id number] myocardial infarction. 3. Metabolic alkalosis. 4. Hyponatremia. 5. Hypokalemia. 6. Physical deconditioning. CONDITION OF PATIENT ON THE DAY OF DISCHARGE: Stable. I assessed Ms. Bran on the day of discharge. She denies any chest pain. Vital signs are stable. S1 and S2 are heard, regular. Lungs are clear to auscultation bilaterally. CONSULTATIONS DURING THIS HOSPITALIZATION: Cardiology, Dr. Murphy. POST-ACUTE CARE FOLLOWUP: With Cardiology Service in 2 to 3 weeks and with primary care provider in 1 week. DISCHARGE MEDICATIONS: 1. Multivitamins one tablet daily. 2. DuoNeb p.r.n. 3. Aspirin 81 mg daily. 4. Lipitor 40 mg at bedtime. 5. Bupropion 100 mg 2 times a day. 6. Plavix 75 mg daily. 7. Lasix 40 mg daily. 8. [place] p.r.n. 9. Lisinopril 2.5 mg daily. 10. Toprol-XL 12.5 mg daily. 11. Protonix 40 mg daily. HOSPITAL COURSE: Ms. Bran is a pleasant 74-year-old lady, who was admitted to [facility] on November 05, 2019, for congestive heart failure. She was also found to have elevated troponins. She was seen by Cardiology Service. She improved with intravenous diuretics. On November 10, she underwent cardiac catheterization through right radial access. She was found to have severe mid LAD disease just before a large diagonal. She underwent PCI with drug-eluting stent. 2D echocardiogram showed left ventricular ejection fraction of 20% to 25% and grade 2/3 diastolic dysfunction, inferior wall hypokinesis, inferior septal hypokinesis, anterior septal hypokinesis, dilated left ventricle, mild concentric LVH, mildly dilated left atrium, mildly enlarged right atrium, mitral annular calcification, mild mitral regurgitation. The aortic valve was sclerosed, but opened well. She had mild tricuspid regurgitation and elevated right ventricular systolic pressure estimated at 53 mmHg. She had mild pulmonic regurgitation and moderate-sized pericardial effusion without tamponade. She developed right arm hematoma following cardiac catheterization. It was attributed to cardiac catheterization. However, she subsequently developed spontaneous left upper extremity hematoma. She was on Brilinta after cardiac catheterization. This was switched to Plavix. She was physically deconditioned. She was evaluated by Therapy Services. She is being discharged to [facility] for further management. On the day of discharge, she has sodium 129, potassium 3.5, creatinine 0.87, white count 4900, hemoglobin 11, and platelet count 258,000. Many thanks for allowing me to participate in your patient's care. Please feel free to contact me with any questions or concerns. DISCHARGE DESTINATION: [facility]. ACTIVITY: As tolerated. DIET: Heart healthy and low-sodium. TIME SPENT: Total amount of time spent coordinating this discharge: 33 minutes. Job ID: [id number]
--- NOTE | 2019-11-17 12:36 | DIS ---
DATE OF ADMISSION: 11/05/2019 DATE OF DISCHARGE: ADDENDUM: Please note that Ms. Bran was fitted with a LifeVest prior to discharge. Job ID: [id number]
== END 2019-11-15 19:55 | DRG 246 ==
LOC: ERS 22:06 → ERHOLD 23:37 → 2NO 11-06 14:53
PROVIDERS: ADMIT Internal Medicine; ATTEND Internal Medicine
PROC: 027034Z Dilation of Coronary Artery, One Artery with Drug-eluting Intraluminal Device, Percutaneous Approach (ICD-10-PCS; principal; 2019-11-10)
PROC: 4A023N7 Measurement of Cardiac Sampling and Pressure, Left Heart, Percutaneous Approach (ICD-10-PCS; 2019-11-10)
PROC: B2111ZZ Fluoroscopy of Multiple Coronary Arteries using Low Osmolar Contrast (ICD-10-PCS; 2019-11-10)
PROC: B2151ZZ Fluoroscopy of Left Heart using Low Osmolar Contrast (ICD-10-PCS; 2019-11-10)
DX: I21.4 Non-ST elevation (NSTEMI) myocardial infarction (principal); I50.43 Acute on chronic combined systolic (congestive) and diastolic (congestive) heart failure; E87.3 Alkalosis; E87.1 Hypo-osmolality and hyponatremia; L76.32 Postprocedural hematoma of skin and subcutaneous tissue following other procedure; E87.6 Hypokalemia; I44.7 Left bundle-branch block, unspecified; I25.10 Atherosclerotic heart disease of native coronary artery without angina pectoris; I25.5 Ischemic cardiomyopathy; E66.9 Obesity, unspecified; Y84.0 Cardiac catheterization as the cause of abnormal reaction of the patient, or of later complication, without mention of misadventure at the time of the procedure; M79.81 Nontraumatic hematoma of soft tissue; Z68.37 Body mass index [BMI] 37.0-37.9, adult
CPT/HCPCS: 36415; 78452; 80048; 80053; 82553; 83735; 84484; 85025; 85347; 92928; 93005; 93010; 93017; 93306; 93458; 93798; 94640; 99152; 99153; A9500; C1769; C1874; C9600; J1644; J1650; J1940; J2001; J2250; J2270; J2785; J3010; J7620; Q9967

== ENCOUNTER 2024-06-27 18:50 | Observation (INO) | payer MEDICARE ==
[2024-06-27 20:29] LABS: #Basophils 0.03 10x3/uL (0.0-0.2); #Eosinphils Less than 0.03 10x3/uL (0.0-0.7); %Basophils 0.4 % (0.0-1.0); %Eosinophils 0.2 % (0.0-10.0); %Lymphocytes 6.3 % (21.0-51.0); %Monocytes 8.7 % (0.0-10.0); %Neutrophils 83.9 % (42.0-75.0); Hematocrit 36.6 % (36.0-47.0); Mean Corpuscular HGB CONC 32.8 g/dL (32.0-36.0); Mean Corpuscular Hemoglobin 31.1 pg (27.0-31.0); Mean Corpuscular Volume 94.8 fL (78.0-98.0); Platelet Count 213 10x3/uL (130-400); RBC Distribution Width 13.7 % (11.5-14.5); Red Blood Cell (RBC) Count 3.86 mill/uL (4.20-5.40)
[2024-06-27 20:43] LABS: ALT (SGPT) 51 U/L (8-55); AST (SGOT) 37 U/L (5-34); Alkaline Phosphatase 117 U/L (40-110); Anion Gap 13 mmol/L (10-20); BUN (Urea Nitrogen) 23 mg/dL (9.8-20.1); Bilirubin, Total 0.7 mg/dL (0.2-1.2); Calc. Creatinine Clearance 0 mL/min (70-130); Calcium 9.4 mg/dL (7.8-10.44); Carbon Dioxide 28 mmol/L (23-31); Chloride 106 mmol/L (98-107); Estimated GFR 45; Globulin 3.7 g/dL (2.4-3.5); Glucose 136 mg/dL (83-110); Potassium 3.8 mmol/L (3.5-5.1); Protein, Total 6.7 g/dL (5.8-8.1); Sodium 143 mmol/L (136-145)
[2024-06-27 20:49] LABS: Troponin I 0.071 ng/mL (< 0.028)
[2024-06-27] MEDS ORDERED: Furosemide 40 MG (4 mL) VIAL ONE (23:24)
[2024-06-28] MEDS ORDERED: Ondansetron PF 4 MG/2 ML Vial IVP PRN (00:47)
[2024-06-28] MEDS ORDERED: Ondansetron ODT 4 MG TAB PO PRN (00:47)
[2024-06-28] MEDS ORDERED: Acetaminophen 650 MG Suppository PR PRN (00:47)
[2024-06-28 03:04] VITALS: BMI 36.6
[2024-06-28 04:53] LABS: Anion Gap 15 mmol/L (10-20); BUN (Urea Nitrogen) 24 mg/dL (9.8-20.1); Calc. Creatinine Clearance 59 mL/min (70-130); Calcium 9.5 mg/dL (7.8-10.44); Carbon Dioxide 26 mmol/L (23-31); Chloride 106 mmol/L (98-107); Estimated GFR 46; Glucose 107 mg/dL (83-110); Magnesium 2.1 mg/dL (1.6-2.6); Potassium 3.7 mmol/L (3.5-5.1); Sodium 143 mmol/L (136-145)
[2024-06-28] MEDS ORDERED: Acetaminophen 325 MG TAB ONE (05:04)
[2024-06-28] MEDS: Acetaminophen 325 MG TAB PO SCH (05:08)
[2024-06-28] MEDS: Famotidine/PF 20 mg/2ml Vial SLOW IVP SCH (11:14)
[2024-06-28] MEDS: Aspirin Chewable 81 MG TAB PO SCH (11:14)
[2024-06-28] MEDS: Famotidine 20 MG TAB PO SCH (11:14)
[2024-06-28] MEDS: Multivitamin W/ Minerals 1 TAB PO SCH (11:14)
[2024-06-28] MEDS: buPROPion HCl 100 MG TAB PO SCH (11:14)
[2024-06-28] MEDS: Apixaban 5 MG TAB PO SCH (11:14)
[2024-06-28] MEDS: Sacubitril 24MG/Valsartan 26 MG TAB PO SCH (11:15)
[2024-06-28] MEDS: Atorvastatin Calcium 40 MG TAB PO SCH (20:34)
[2024-06-28] MEDS: Ezetimibe 10 MG TAB PO SCH (20:34)
[2024-06-29 04:49] LABS: ALT (SGPT) 49 U/L (8-55); AST (SGOT) 40 U/L (5-34); Alkaline Phosphatase 104 U/L (40-110); Anion Gap 12 mmol/L (10-20); BUN (Urea Nitrogen) 20 mg/dL (9.8-20.1); Bilirubin, Total 0.8 mg/dL (0.2-1.2); Calc. Creatinine Clearance 60 mL/min (70-130); Calcium 9.4 mg/dL (7.8-10.44); Carbon Dioxide 33 mmol/L (23-31); Chloride 103 mmol/L (98-107); Estimated GFR 47; Globulin 3.8 g/dL (2.4-3.5); Glucose 97 mg/dL (83-110); Magnesium 1.9 mg/dL (1.6-2.6); Potassium 3.5 mmol/L (3.5-5.1); Protein, Total 6.8 g/dL (5.8-8.1); Sodium 144 mmol/L (136-145)
[2024-06-29 04:52] LABS: #Basophils 0.04 10x3/uL (0.0-0.2); %Basophils 0.7 % (0.0-1.0); %Eosinophils 2.8 % (0.0-10.0); %Lymphocytes 16.2 % (21.0-51.0); %Monocytes 9.2 % (0.0-10.0); %Neutrophils 70.9 % (42.0-75.0); Hematocrit 40.7 % (36.0-47.0); Hemoglobin 12.6 g/dL (12.0-16.0); Mean Corpuscular Volume 96.9 fL (78.0-98.0); Mean Platelet Volume 9.9 fL (7.4-10.4); Platelet Count 234 10x3/uL (130-400); RBC Distribution Width 13.7 % (11.5-14.5)
[2024-06-30 05:15] LABS: #Basophils 0.04 10x3/uL (0.0-0.2); %Basophils 0.7 % (0.0-1.0); %Eosinophils 4.7 % (0.0-10.0); %Lymphocytes 15.2 % (21.0-51.0); %Monocytes 8.9 % (0.0-10.0); %Neutrophils 70.1 % (42.0-75.0); Hematocrit 40.3 % (36.0-47.0); Hemoglobin 12.6 g/dL (12.0-16.0); Mean Corpuscular HGB CONC 31.3 g/dL (32.0-36.0); Mean Corpuscular Hemoglobin 30.5 pg (27.0-31.0); Mean Corpuscular Volume 97.6 fL (78.0-98.0); Mean Platelet Volume 9.7 fL (7.4-10.4); Platelet Count 214 10x3/uL (130-400); RBC Distribution Width 13.8 % (11.5-14.5); Red Blood Cell (RBC) Count 4.13 mill/uL (4.20-5.40)
[2024-06-30 05:46] LABS: ALT (SGPT) 38 U/L (8-55); AST (SGOT) 28 U/L (5-34); Albumin 2.9 g/dL (3.4-4.8); Alkaline Phosphatase 92 U/L (40-110); Anion Gap 13 mmol/L (10-20); BUN (Urea Nitrogen) 20 mg/dL (9.8-20.1); Bilirubin, Total 0.5 mg/dL (0.2-1.2); Calc. Creatinine Clearance 52 mL/min (70-130); Calcium 9.2 mg/dL (7.8-10.44); Carbon Dioxide 31 mmol/L (23-31); Chloride 102 mmol/L (98-107); Estimated GFR 35; Globulin 3.5 g/dL (2.4-3.5); Glucose 103 mg/dL (83-110); Magnesium 1.9 mg/dL (1.6-2.6); Potassium 3.7 mmol/L (3.5-5.1); Protein, Total 6.4 g/dL (5.8-8.1); Sodium 142 mmol/L (136-145)
[2024-06-30] MEDS: Amiodarone 200 MG TAB PO SCH (09:12)
[2024-06-30 16:22] VITALS: BP 163/86; TEMP 98
== END 2024-06-30 17:15 | disposition home or self-care (01) ==
LOC: ERS 18:50 → ERHOLD 06-28 00:10 → 2SW 06-28 15:56
PROVIDERS: ADMIT Student in an Organized Health Care Education/Training Program; ATTEND Student in an Organized Health Care Education/Training Program
DX: I48.0 Paroxysmal atrial fibrillation (principal); I50.23 Acute on chronic systolic (congestive) heart failure; I25.10 Atherosclerotic heart disease of native coronary artery without angina pectoris; I25.5 Ischemic cardiomyopathy; J45.909 Unspecified asthma, uncomplicated; Z79.01 Long term (current) use of anticoagulants; Z79.82 Long term (current) use of aspirin; Z79.899 Other long term (current) drug therapy
CPT/HCPCS: 71045; 80048; 80053 ×3; 83735 ×3; 83880; 84484 ×2; 85025 ×3; 93005; 99285; G0378 ×4; J1940; 36415; J3490